=== PATIENT | male | born 1955 | race Caucasian/White ===

== ENCOUNTER 2016-11-07 08:51 | Day surgery (SDC) | payer BC ==
[2016-11-05 12:49] VITALS: BMI 27.6
[~2016-11-07 08:51] MED LIST: LACTATED RINGERS 1,000 ML IV SCH
[2016-11-07 10:18] VITALS: TEMP 97.6
[2016-11-07] MEDS ORDERED: PROPOFOL 10 MG/ML 20 ML VIAL IV ONE (10:26)
--- NOTE | 2016-11-07 10:41 | P.PCN ---
Date of Procedure: 11/07/16 Procedure(s) Performed: BRIEF HISTORY: Patient is a 61-year-old pleasant white male, scheduled for an elective colonoscopy as a part of evaluation of change in bowel habits. Lately has been having frequent loose bowel movements for the last 1 month duration. He denies any rectal bleeding. PROCEDURE PERFORMED: Colonoscopy. PREOPERATIVE DIAGNOSIS: Change in bowel habits. IV sedation per Anesthesia. PROCEDURE: After informed consent was obtained, the patient, was brought into the endoscopy unit. IV conscious sedation was administered by Anesthesia under continuous monitoring. Digital rectal examination was normal. Initially the Olympus CF-160 flexible video colonoscope was then inserted in the rectum, gradually advanced into the cecum without any difficulty. Careful examination was performed as the scope was gradually being withdrawn. Ileocecal valve and the appendiceal orifice were visualized and appeared normal. Prep was excellent. Mucosa of the cecum, ascending colon, transverse colon, descending colon, sigmoid colon, and rectum appeared normal. Retroflexion was performed in the rectum and no lesions were seen. The patient tolerated the procedure well. IMPRESSION: Normal-appearing colon from rectum to cecum with no evidence of colitis or colorectal neoplasia. RECOMMENDATIONS: Findings of this examination were discussed with the patient as well as his family. He was advised to have a repeat screening colonoscopy in 10 years.
[2016-11-07 11:01] VITALS: BP 119/86; PULSE 77; RESP 18
== END 2016-11-07 11:32 | disposition home or self-care (01) ==
LOC: ORWHC2ENDO 08:51
PROVIDERS: ATTEND Internal Medicine Gastroenterology
DX: R19.4 Change in bowel habit (principal); I10 Essential (primary) hypertension; Z79.899 Other long term (current) drug therapy; Z79.82 Long term (current) use of aspirin
CPT/HCPCS: 45378; J2704

== ENCOUNTER → 2017-07-12 | Outpatient (CLI) | payer BC ==
--- NOTE | 2017-07-12 07:49 | MR ---
EXAMINATION TYPE: MR angio neck wo/w con DATE OF EXAM: 07/12/2017 COMPARISON: NONE HISTORY: 61-year-old male with headache, Dizziness Technique: Multiplanar, multisequence images of the neck were obtained before and after administratio n of 9 mL intravenous Gadavist gadolinium contrast. 2-D and 3-D ryyd-da-[id number] imaging was used for the noncontrast portion. FINDINGS: The bilateral carotid bifurcations are patent. There is mild atherosclerotic narrowing at the right c arotid bulb less than 50%. The narrowed carotid bulb has a diameter of 2.6 mm while the upper right c ervical ICA has a diameter of 3.4 mm. This qualifies as a 30% stenosis by NASCET criteria. The remainder of the internal carotid arteries are normal caliber and patent throughout their course. Mild atherosclerotic narrowing at the origin of the bilateral vertebral arteries which are otherwise patent throughout their course. IMPRESSION: Mild atherosclerotic narrowing, of approximately 30%, at the right carotid bulb. No hemodynamically s ignificant stenosis appreciated at either bifurcation.
== END | disposition home or self-care (01) ==
LOC: RADMRIMAIN 05:44
PROVIDERS: ATTEND Nurse Practitioner Family
DX: I65.21 Occlusion and stenosis of right carotid artery (principal)
CPT/HCPCS: 70549; A9581

== ENCOUNTER → 2018-01-31 | Outpatient (CLI) | payer BC ==
--- NOTE | 2018-01-31 10:36 | US ---
EXAMINATION TYPE: US abdomen complete DATE OF EXAM: 01/31/2018 COMPARISON: NONE CLINICAL HISTORY: R10.33 PERIUMBILICAL PAIN,R10.813 RT LOWER QUAD ABD TENDERNESS. EXAM MEASUREMENTS: Liver Length: 12.3 cm Gallbladder Wall: 0.2 cm CBD: 0.2 cm Spleen: 11.4 cm Right Kidney: 10.4 x 4.4 x 4.4 cm Left Kidney: 10.8 x 4.7 x 4.7 cm Patient had extensive midline bowel gas. Pancreas: very limited visualization due to overlying bowel gas Liver: wnl Gallbladder: wnl Evidence for sonographic Kaminski's sign: no CBD: wnl Spleen: wnl Right Kidney: wnl Left Kidney: wnl Upper IVC: wnl Abd Aorta: proximal portion partly obscured by bowel gas, otherwise wnl The liver is homogenous. The intrahepatic portion of the IVC and proximal abdominal aorta are within normal limits. There is no evidence of cholelithiasis. Common bile duct is unremarkable. The visu alized portions of the pancreas are heterogeneous without mass. Portions are secured by overlying bow el gas. The spleen is unremarkable. Kidneys are symmetric and free of hydronephrosis. No solid or c ystic renal lesions are seen. On last few images technologist garcia 5 mm shadowing hyperechoic focus could reflect nonobstructing calculus lower pole level left kidney. IMPRESSION: No suspicious acute finding is seen to account for patient's symptoms. Possible nonobstru cting lower pole 5 mm left renal calculus.
== END ==
LOC: RADUSWWP 06:49
PROVIDERS: ATTEND Family Medicine
DX: R10.33 Periumbilical pain (principal); R10.813 Right lower quadrant abdominal tenderness
CPT/HCPCS: 76700

== ENCOUNTER → 2018-03-17 | Outpatient (CLI) | payer BC ==
--- NOTE | 2018-03-17 18:46 | US ---
EXAMINATION TYPE: US scrotum with doppler. Grayscale and color Doppler Duplex imaging performed of t he scrotum. DATE OF EXAM: 03/17/2018 COMPARISON: NONE CLINICAL HISTORY: N50.812 Left testicular pain. Left side pain. EXAM MEASUREMENTS: TESTICLES: Right Testicle: 3.6 x 2.1 x 4.3 cm Left Testicle: 3.3 x 2.1 x 4.4 cm EPIDIDYMIS HEAD: Right Epididymis: 1.0 x 0.4 x .7 cm Left Epididymis: 0.8 x 0.5 x 0.8 cm Doppler performed to assess for testicular vascularity; good bilateral color flow and waveforms are s een. There is no evidence of testicular torsion. Presence of varicoceles: No Normal color doppler flow bilaterally. IMPRESSION: Small bilateral hydroceles. No testicular torsion or mass.
== END | disposition home or self-care (01) ==
LOC: RADUSMAIN 17:54
PROVIDERS: ATTEND Family Medicine
DX: N43.3 Hydrocele, unspecified (principal)
CPT/HCPCS: 76870; 93975

== ENCOUNTER → 2018-08-01 | Outpatient (CLI) | payer BC ==
--- NOTE | 2018-08-01 12:45 | CT ---
EXAMINATION TYPE: CT abdomen pelvis w con DATE OF EXAM: 08/01/2018 COMPARISON: None HISTORY: LLQ pain and nausea CT DLP: 1110.2 mGycm, Automated Exposure Control for Dose Reduction was Utilized. CONTRAST: CT scan of the abdomen and pelvis is performed with oral and with IV Contrast, patient injected with 100 mL of Isovue 300. FINDINGS: LUNG BASES: No significant abnormality is appreciated. LIVER/GB: No significant abnormality is appreciated. PANCREAS: No significant abnormality is seen. SPLEEN: No significant abnormality is seen. ADRENALS: No significant abnormality is seen. KIDNEYS: There is elongated calculus measuring roughly 6 mm long axis lower pole level left kidney co cuate image 68. There is symmetric cortical medullary uptake and excretion from both kidneys without hydronephrosis or obstructing ureter calculi identified bilaterally. A few scattered pelvic phlebolit hs are seen including higher positioned left pelvic phleboliths. No intraluminal calculus and bladder is present. BOWEL: Oral contrast reaches level of proximal sigmoid colon. There is no suspicious small or large b owel dilatation. Appendix is not visualized and presumed surgically absent. There is some redundancy of the sigmoid colon. PROSTATE/SEMINAL VESICLES: Prostate gland is heterogeneous and slightly enlarged in size bulging on b ladder base, underlying BPH is felt present. LYMPH NODES: No greater than 1cm abdominal or pelvic lymph nodes are appreciated. OSSEOUS STRUCTURES: There is mild to moderate multilevel disc space narrowing. There is mild to moder ate multilevel anterior and lateral spurring in the thoracic spine. OTHER: Tiny fat-containing umbilical hernia is present. Asymmetric tiny fat-containing left inguinal hernia. There is mild to moderate calcified plaque of the aorta extending into branch vessels. IMPRESSION: No bowel obstruction. No CT evidence for significant acute diverticulosis or diverticuli tis. Nonobstructing elongated left renal calculus, no hydronephrosis or obstructing ureter calculi cl early seen.
== END ==
LOC: RADCTMAIN 10:53
PROVIDERS: ATTEND Urology
DX: N20.0 Calculus of kidney (principal)
CPT/HCPCS: 82565; 84520; 74177; 36415; Q9967

== ENCOUNTER → 2020-01-13 | Outpatient (CLI) | payer BC ==
--- NOTE | 2020-01-13 16:44 | CT ---
EXAMINATION TYPE: CT abdomen pelvis w con DATE OF EXAM: 01/13/2020 COMPARISON: 08/01/2018 INDICATION: periumbilical pain DLP: 935 mGycm, Automated exposure control for dose reduction was used. CONTRAST: 100 mL of Isovue 300. Study performed with Oral Contrast TECHNIQUE: Axial images were obtained from above the diaphragm to the pubic rami in the axial plane a t 5 mm thick sections. Reconstructed images are reviewed on the computer in the coronal plane. FINDINGS: Limited CT sections are obtained the lung bases. The lung bases are clear. CT ABDOMEN: Liver: Liver is a normal density without discrete masses or cysts. Spleen: Normal Pancreas: Normal Adrenal glands: The adrenal glands are normal. Gallbladder: Normal Kidneys: No masses are evident. No hydronephrosis is present. No cysts are present. Delayed images were obtained through the kidneys, which remain unremarkable. Aorta: Vascular calcification is within the aorta. Inferior vena cava: Normal. CT PELVIS: Loops of bowel within the abdomen and pelvis are normal. There are loops of bowel which are incom pletely distended or lack oral contrast limiting their evaluation. Appendix: Not identified. No suspicious tubular structures or inflammatory changes are evident. Urinary bladder: Normal. Genitourinary structures: Prostate is prominent. Osseous structures: No suspicious lytic or sclerotic lesions. IMPRESSIONS: 1. No suspicious changes to account for periumbilical pain.
== END | disposition home or self-care (01) ==
LOC: RADCTMAIN 13:40
PROVIDERS: ATTEND Family Medicine
DX: R10.32 Left lower quadrant pain (principal)
CPT/HCPCS: 74177; Q9967

== ENCOUNTER 2020-11-29 16:25 | Inpatient (IN) | payer BC ==
[2020-12-01] MEDS ORDERED: ASPIRIN 325 MG TAB ONE (07:19)
[2020-12-01] MEDS ORDERED: LIDOCAINE 1% INJ 10MG/ML (20 ML MDV) ONE (07:22)
[2020-12-01] MEDS ORDERED: IV FLUID CONTINUATION 1,000 ML IV ONE (07:30)
[2020-12-01] MEDS ORDERED: fentaNYL (PF) 50 MCG/ML 2 ML AMP ONE (07:39)
[2020-12-01] MEDS ORDERED: TICAGRELOR 90 MG TAB ONE (07:39)
[2020-12-01] MEDS ORDERED: VERAPAMIL 2.5 MG/ML 2 ML AMP ONE (07:40)
[2020-12-01] MEDS ORDERED: MIDAZOLAM 2 MG/2 ML VIAL IV ONE (07:43)
[2020-12-01] MEDS ORDERED: fentaNYL (PF) 50 MCG/ML 2 ML AMP IV ONE (07:43)
[2020-12-01] MEDS ORDERED: TICAGRELOR 90 MG TAB PO ONE (07:43)
[2020-12-01] MEDS ORDERED: LIDOCAINE 1% INJ 10MG/ML (20 ML MDV) SQ ONE (07:45)
[2020-12-01] MEDS ORDERED: VERAPAMIL SYRINGE (5 MG/10 ML) INTRAARTER ONE (07:47)
[2020-12-01] MEDS: HEPARIN SODIUM 1,000 UN/ML (10ML VL) IV ONE ×2 (07:52→08:33)
[2020-12-01] MEDS ORDERED: NITROGLYCERIN 1000MCG/10ML SYRINGE INTRACORON ONE ×4 (08:02→08:42)
[2020-12-01] MEDS ORDERED: IOPAMIDOL-370 125ML BTL INJ ONE (08:37)
[2020-12-01] MEDS ORDERED: IOPAMIDOL-370 100ML BTL INJ ONE (08:53)
[2020-12-01] MEDS ORDERED: NITROGLYCERIN SL TABS 0.4 MG TAB SUBLINGUAL PRN (09:02)
[2020-12-01] MEDS ORDERED: ATROPINE SULFATE 0.1 MG/ML 10ML SYRINGE IV PRN (09:02)
[2020-12-01] MEDS ORDERED: MAG HYDROX/AL HYDROX/SIMETH 30 ML CUP PO PRN (09:02)
[2020-12-01] MEDS ORDERED: RX INFO: IV CONTRAST WAS GIVEN 1 EACH MISC MISCELLANE PRN (09:02)
[2020-12-01 10:25] VITALS: RESP 16
[2020-12-01 11:20] VITALS: BMI 27.3
--- NOTE | 2020-12-01 13:01 | P.PRCINT ---
Percutaneous Coronary Int. - Percutaneous Coronary Intervention Percutaneous Coronary Intervention: PROCEDURES PERFORMED: Bilateral coronary angiography, aspiration thrombectomy with Penumbra, PCI of proximal to mid RCA with overlapping 4.0 x 38mm, 4.0 x 12mm Xience SERGE, PCI of mid LAD with a 2.75 x 18mm Xience SERGE INDICATION: Unstable angina, obstructive CAD HISTORY: Patient is a pleasant 65-year-old male with a history of hypertension, ocular migraine, left eye blindness, untreated hyperlipidemia, marijuana use who presents with chest pain with exertion and also while sitting which usually occurs when he feels his heart fluttering. He was found to have rare PVCs and no other significant arrhythmias. He was initially seen at [facility] with normal troponins and echocardiogram showed preserved ejection fraction 50-55% with basal inferior hypokinesis. He had heart catheterization performed which showed 99% tandem RCA stenosis as well as mid LAD 80% stenosis with [id number] collaterals. He did have visual changes during heart catheterization which were similar to his prior ocular migraine and therefore CT brain was performed which showed no acute processes and a carotid ultrasound was performed with preliminary report of mild disease. Patient was transferred to [facility] for intervention. CONSENT:I have discussed the risks, benefits and alternative therapies for the above-mentioned procedure and for both sedation/analgesia as well as necessary blood product administration, if indicated, as they pertain to this patient. The patient has indicated understanding and acceptance of the risks and procedures discussed. PROCEDURE: After the risks, benefits and alternatives of the above mentioned procedure explained in detail with the patient, informed consent was obtained. Patient was taken to the catheterization lab and prepped and draped in usual fashion. 1% lidocaine was used to anesthetize the right radial artery. A 6- Algerian sheath was placed in the right radial artery using modified Seldinger technique. Heparin was given to maintain an ACT > 250. A 6Fr AR2 guide was used to engage the RCA. A 0.014 BMW wire was easily advanced into the distal vessel. Aspiration thrombectomy was performed with a Penumbra catheter. Next balloon angioplasty was performed with a 2.5 x 12mm balloon. Next overlapping 4.0 x 38mm and 4.0 x 12mm Xience SERGE were placed from the ostium to the mid RCA. Preintervention there was ODILIA 1 flow and 99% stenosis and post intervention there was ODILIA 3 flow with no significant stenosis. The wire was pulled and final angiograms were performed. Next a CLS 3.5 guide was used to engage the left main. The left main had a somewhat superior takeoff. A 0.014 BMW wire was advanced into the distal LAD. Balloon angioplasty was performed with a 2.5 x 12mm balloon. Next a 2.75 x 18mm Xience SERGE was placed. The wire was pulled and final angiograms were performed. Pre intervention there was 80% stenosis and ODILIA 3 flow. Post intervention there was ODILIA 3 flow 0% stenosis. There was "pinching" of the jailed diagonal branch however this had ODILIA 3 flow and felt best treated medically. Conscious Sedation: Patient was monitored under the direct supervision of vision of myself for conscious sedation using Versed and fentanyl for a total duration of 70 minutes HEMODYNAMICS: Aorta: 140/78 SELECTIVE CORONARY ARTERIOGRAPHY: LEFT MAIN: The left main is a large caliber vessel which bifurcates into the LA D, and circumflex. There is proximal 20% stenosis. LEFT ANTERIOR DESCENDING CORONARY ARTERY: LAD is a large caliber vessel which wraps around to the apex. There is proximal 40% stenosis and a mid LAD 80% stenosis at the level of a small caliber diagonal 1 branch. LEFT CIRCUMFLEX CORONARY ARTERY: Left circumflex is a moderate caliber vessel. There are mild luminal irregularities. RIGHT CORONARY ARTERY: The right coronary artery is a large caliber vessel which gives off the PDA and PLV and is the dominant vessel. There is an ostial 99% stenosis followed by a 95% long mid RCA stenosis. FINAL IMPRESSION: 1. Successful PCI of proximal to mid RCA with overlapping 4.0 x 38mm, 4.0 x 12mm Xience SERGE, PCI of mid LAD with a 2.75 x 18mm Xience SERGE PLAN: 1. Aggressive risk factor modification per most recent ACC/AHA guidelines. 2. Continue dual antiplatelets for 12 months.
[2020-12-01] MEDS: SODIUM CHLORIDE 0.9% 1,000 ML IV SCH ×2 (13:13→17:56)
[2020-12-01] MEDS: MULTIVITAMINS, THERA 1 EACH TAB PO SCH (13:14)
[2020-12-01] MEDS: lisinopriL 10 MG TAB PO SCH (13:14)
[2020-12-01 15:07] LABS: Glucose,Whole Blood 88 mg/dL (75-99)
[2020-12-01] MEDS: METOPROLOL TARTRATE 25 MG TAB PO SCH ×2 (15:30→21:38)
[2020-12-01] MEDS ORDERED: ZOLPIDEM 5 MG TAB PO PRN (21:00)
[2020-12-01] MEDS ORDERED: ATORVASTATIN 80 MG TAB PO SCH (21:00)
[2020-12-02 04:08] LABS: Basophils % (A) 0 %; Eosinophils # (A) 0.3 k/uL (0-0.7); Eosinophils % (A) 3 %; HCT 46.8 % (39.0-53.0); HGB 16.5 gm/dL (13.0-17.5); Lymphocytes # (A) 1.9 k/uL (1.0-4.8); Lymphocytes % (A) 18 %; MCH 32.1 pg (25.0-35.0); MCHC 35.3 g/dL (31.0-37.0); MCV 90.9 fL (80.0-100.0); Mean Platelet Volume 8.2; Monocytes # (A) 0.6 k/uL (0-1.0); Monocytes % (A) 6 %; Neutrophils # (A) 7.7 k/uL (1.3-7.7); Neutrophils % (A) 73 %; Platelet Count 202 k/uL (150-450); RBC 5.15 m/uL (4.30-5.90); RDW 13.5 % (11.5-15.5); WBC 10.6 k/uL (3.8-10.6)
[2020-12-02 04:27] LABS: Calcium 9.5 mg/dL (8.4-10.2); Potassium 4.3 mmol/L (3.5-5.1)
--- NOTE | 2020-12-02 08:21 | P.PN ---
Subjective HISTORY OF PRESENTING ILLNESS This is a pleasant 65-year-old male past medical history significant for hypertension, hyperlipidemia, blindness in one eye and ocular migraines. He initially was seen at [facility] for unstable angina and had diagnostic heart catheterization which showed 99% RCA stenosis and 80% mid LAD stenosis. He therefore was transferred to [facility] yesterday and had successful PCI of his proximal to mid RCA and mid LAD. He had an episode after the intervention where he became somewhat sweaty, short of breath, and "not feeling well". Denies any specific chest pain or pressure during this episode. Denies any throat pain, jaw pain. This lasted for a few hours and troponins were checked which were mildly elevated. He admits that since yesterday this has completely resolved. Unfortunately he is also feeling somewhat short of breath however is unsure if this may be related to sitting in bed most of the last 3 days. Telemetry reviewed with normal sinus rhythm and occasional PVCs. States he has some left leg cramping. REVIEW OF SYSTEMS At the time of my exam: CONSTITUTIONAL: Denies fever or chills. CARDIOVASCULAR: Denies chest pain, +shortness of breath, no orthopnea, PND or palpitations. RESPIRATORY: Denies cough. GASTROINTESTINAL: Denies abdominal pain, diarrhea, constipation, nausea or vomiting. MUSCULOSKELETAL: Denies myalgias. NEUROLOGIC: Denies numbness, tingling or weakness. ENDOCRINE: Denies fatigue, weight change, polydipsia or polyurina. GENITOURINARY: Denies burning, hematuria or urgency with micturation. HEMATOLOGIC: Denies history of anemia or bleeding. PHYSICAL EXAMINATION Vital signs reviewed CONSTITUTIONAL: No apparent distress. HEENT: Head is normocephalic. Pupils are equal, round. Sclerae anicteric. Mucous membranes of the mouth are moist. No JVD. No carotid bruit. CHEST EXAMINATION: Lungs are clear to auscultation. No chest wall tenderness is noted on palpation or with deep breathing. HEART EXAMINATION: Regular rate and rhythm. S1, S2 heard. No murmurs, gallops or rub. ABDOMEN: Soft, nontender. Positive bowel sounds. EXTREMITIES: 2+ peripheral pulses, no lower extremity edema and no calf tenderness. NEUROLOGIC EXAMINATION: Patient is awake, alert and oriented x3. ASSESSMENT 1. Unstable angina status post PCI of RCA and mid LAD 12/01/2020 2. Hypertension 3. Hyperlipidemia 4. Ocular migraines 5. Shortness breath, maybe related to the Brillinta 6. Episode of diaphoresis and shortness breath with mildly elevated troponins. Appears to have had mild periprocedural [place] PLAN We will check a repeat limited 2-D echo to value for left ventricular function. Continue with dual antiplatelets. Brilinta may be causing some dyspnea however we would like to continue this for the first month if possible to avoid risk of complications from transition early in course. Patient with some atypical left calf pain which he believes he had taken a statin before and had issues with. We discussed this may also be a cramp and he will continue the Lipitor and monitor pain. If 2-D echo unrevealing likely discharge home later today with outpatient follow-up in 1 week. Objective - Vital Signs Vital signs: Vital Signs Temp 98.7 F 12/02/20 04:00 Pulse 64 12/02/20 04:00 Resp 16 12/02/20 04:00 BP 112/76 12/02/20 04:00 Pulse Ox 97 12/02/20 04:00 Intake & Output 12/01/20 12/02/20 12/02/20 18:59 06:59 18:59 Intake Total 2000 Output Total 1010 200 Balance 990 -200 Weight 86.3 kg 86 kg Intake: IV 550 Intake, IV Titration 1000 Amount Sodium Chloride 0.9% 1, 1000 000 ml @ 125 mls/hr IV . Q8H [facility] Rx#:[id number] Oral 450 Output: Urine 1010 200 Other: # Voids 2 - Labs CBC & Chem 7: 12/02/20 03:52 12/02/20 03:52 Labs: Abnormal Lab Results - Last 24 Hours (Table) 12/01/20 12/01/20 12/02/20 Range/Units 15:38 18:22 03:52 Sodium 134 L (137-145) mmol/L Glucose 101 H (74-99) mg/dL Troponin I 0.063 H* 0.280 H* (0.000-0.034) ng/mL 12/02/20 Range/Units 03:52 Sodium (137-145) mmol/L Glucose (74-99) mg/dL Troponin I 0.653 H* (0.000-0.034) ng/mL
[2020-12-02] MEDS: MULTIVITAMINS, THERA 1 EACH TAB PO SCH (08:33)
[2020-12-02] MEDS: lisinopriL 10 MG TAB PO SCH (08:34)
[2020-12-02] MEDS ORDERED: atenoloL 25 MG TAB PO SCH (09:00)
[2020-12-02] MEDS ORDERED: TICAGRELOR 90 MG TAB PO SCH (09:00)
[2020-12-02] MEDS ORDERED: ASPIRIN 81 MG PO SCH ×2 (09:00)
--- NOTE | 2020-12-02 10:34 | ECHOF ---
Referral Reason:re: s/p PCI, LV function MEASUREMENTS -------- HEIGHT: 182.9 cm WEIGHT: 85.7 kg BP: FINDINGS -------- Sinus rhythm. Pt had stents 12/01/20: Limited study for LV function. Overall left ventricular systolic function is normal with, an EF between 55 - 60 %. There is no pericardial effusion. CONCLUSIONS -------- 1. Pt had stents 12/01/20: Limited study for LV function. 2. Overall left ventricular systolic function is normal with, an EF between 55 - 60 %. 3. There is no pericardial effusion. CLIENT RENEWAL SPECIALIST: Rea Coates RDCS
[2020-12-02 10:36] VITALS: TEMP 97.9
--- NOTE | 2020-12-02 13:38 | P.DS ---
Providers Date of admission: 12/01/20 07:20 Attending physician: Deion Siegel DO Consults: 12/01/20 09:02 Consult Physician Routine Consulting Provider: [facility] Consult Reason/Comments: Post Interventional patient Do you want consulting provider notified?: Already Contacted Primary care physician: Stated None Hospital Course: Patient is a pleasant 65-year-old male past medical history significant for hypertension, hyperlipidemia, blindness in one eye and ocular migraines. He initially was seen at [facility] for unstable angina and had diagnostic heart catheterization which showed 99% RCA stenosis and 80% mid LAD stenosis. He therefore was transferred to [facility] yesterday and had successful PCI of his proximal to mid RCA and mid LAD. He had an episode after the intervention where he became somewhat diaphoretic, short of breath, and "not feeling well". This lasted for a few hours and troponins were checked which were mildly elevated. He admits that since yesterday this has completely resolved. He also had mild dyspnea possibly related to his Brillinta however felt best to continue Brilinta for 1 month and then likely transition to Plavix. He had repeat echo which showed preserved EF without significant wall motion abnormality. He appeared stable for discharge on 12/02 with out pt followup. Plan - Discharge Summary Discharge Rx Participant: Yes New Discharge Prescriptions: New Zolpidem [Ambien] 5 mg PO HS PRN tab PRN Reason: Insomnia Ticagrelor [Brilinta] 90 mg PO BID #60 tab Atorvastatin [Lipitor] 40 mg PO DAILY #30 tablet atenoloL [Tenormin] 25 mg PO DAILY tab Continue Aspirin 81 mg PO DAILY lisinopriL [Zestril] 10 mg PO DAILY Multivitamins, Thera [Multivitamin (formulary)] 1 tab PO DAILY Discontinued atenoloL [Tenormin] 12.5 mg PO HS Discharge Medication List Aspirin 81 mg PO DAILY 01/13/14 [History] Multivitamins, Thera [Multivitamin (formulary)] 1 tab PO DAILY 11/05/16 [History] lisinopriL [Zestril] 10 mg PO DAILY 11/05/16 [History] Atorvastatin [Lipitor] 40 mg PO DAILY #30 tablet 12/02/20 [Rx] Ticagrelor [Brilinta] 90 mg PO BID #60 tab 12/02/20 [Rx] Zolpidem [Ambien] 5 mg PO HS PRN tab 12/02/20 [Rx] atenoloL [Tenormin] 25 mg PO DAILY tab 12/02/20 [Rx] Follow up Appointment(s)/Referral(s): [facility],Cardiac [NON-STAFF] - 1 Week Deion Siegel DO [STAFF PHYSICIAN] - 1 Week (Office will call you with appointment date and time.) Patient Instructions/Handouts: Metoprolol (By mouth), Lisinopril (By mouth), Atorvastatin (By mouth), Ticagrelor (By mouth), Left Heart Catheterization (DC), After Radial Heart Catheterization (GEN), Procedural Sedation (ED) Activity/Diet/Wound Care/Special Instructions: No flexing/bending/pushing/pulling/lifting greater than 5 pounds x5 days No submersion of right wrist in pools/hot tubs/bath tubs x3 days No driving x3 days Sedation- Fall risk/safety precautions Follow up No changes with medications- Rhonda new medication
[2020-12-02 14:29] VITALS: BP 112/72; PULSE 59
--- NOTE | 2020-12-05 12:00 | CDI ---
Documentation Clarification Form Date: 12/05/20 From: Anabell Kevin Phone: Admit Date: 12/01/2020 07:20:00 AM Patient Name: Ignacio Enrique Visit Number: [id number] Discharge Date: 12/02/2020 02:55:00 PM ATTENTION: The Clinical Documentation Specialists (CDI) and [facility] Coding Staff appreciate your assistance in clarifying documentation. Please respond to the clarification below the line at the bottom and electronically sign. The CDI & [facility] Coding staff will review the response and follow-up if needed. Please note: Queries are made part of the Legal Health Record. If you have any questions, please contact the author of this message via ITS. Dr. Deion Siegel, Appears to have had mild periprocedural MN documented in 12/02 PN. Additional clarification regarding the type of MN is requested. History/Risk Factors: HTN, HLD, blindness one eye and ocular migraines Clinical Indicators: USA, obstructive CAD- 1.Successful PCI of proximal to mid RCA with overlapping 4.0 x 38mm, 4.0 x 12mm Xience SERGE, PCI of mid LAD with a 2.75 x 18mm Xience SERGE Troponin: 0.063, 0.280, 0.653 EKG Results: sinus rhythm with occasional and consecutive PVCs, T wave abnormality, consider inferior ischemia Treatment: Brinlinta, Lipitor, Tenormin Please clarify the type of MN, if known: [ ] STEMI (type 1) [ ] NSTEMI (type 1) [ ] Type II MN due to (please specify etiology) [ ] Unable to determine [ ] Other Condition, please specify NSTEMI type 1 MTDD
== END 2020-12-02 14:55 | disposition home or self-care (01) | DRG 247 ==
LOC: 3SCARD 12-01 07:20 → EDSTATUS 12-01 07:30 → 3SCARD 12-01 10:21
PROVIDERS: ADMIT Internal Medicine; ATTEND Internal Medicine
PROC: 027135Z Dilation of Coronary Artery, Two Arteries with Two Drug-eluting Intraluminal Devices, Percutaneous Approach (ICD-10-PCS; principal; 2020-12-01 07:30)
PROC: 02C03ZZ Extirpation of Matter from Coronary Artery, One Artery, Percutaneous Approach (ICD-10-PCS; principal; 2020-12-01 07:30)
DX: I21.9 Acute myocardial infarction, unspecified (principal); I25.110 Atherosclerotic heart disease of native coronary artery with unstable angina pectoris; I10 Essential (primary) hypertension; E78.5 Hyperlipidemia, unspecified; G43.B0 Ophthalmoplegic migraine, not intractable; H54.60 Unqualified visual loss, one eye, unspecified; I49.3 Ventricular premature depolarization; Z79.82 Long term (current) use of aspirin; Z79.899 Other long term (current) drug therapy
CPT/HCPCS: 80048; 84484; 85025; 85347; 92973; 93308; 94760

== ENCOUNTER 2020-12-04 15:33 | Inpatient (IN) | payer BC ==
[2020-12-04] MEDS ORDERED: PANTOPRAZOLE 40 MG/10 ML VIAL IVP STA (15:51)
--- NOTE | 2020-12-04 15:54 | ED ---
General Adult HPI - General Chief complaint: Chest Pain Stated complaint: dizziness, chest pressure Time Seen by Provider: 12/04/20 15:42 Source: patient, RN notes reviewed, old records reviewed Mode of arrival: wheelchair Limitations: no limitations - History of Present Illness Initial comments: 65-year-old male presenting for evaluation of chest pressure which began about one hour prior to arrival. This is nonradiating. It is associated with some burning in his upper chest and throat. No vomiting. No nausea. No diaphoresis. Patient is 2 days postop coronary angiogram with stenting. He is currently on aspirin and Brilinta he has taken his medication this morning. Additionally is on statin beta rosemary. He states this is not typical of either previous indigestion or previous chest pain associated with his coronary artery disease. No fever. No cough. No dyspnea. No lower extremity pain or swelling. - Related Data Home Medications Medication Instructions Recorded Confirmed Aspirin 81 mg PO DAILY 01/13/14 12/04/20 Multivitamins, Thera [Multivitamin 1 tab PO DAILY 11/05/16 12/04/20 (formulary)] lisinopriL [Zestril] 10 mg PO DAILY 11/05/16 12/04/20 Previous Rx's Medication Instructions Recorded Atorvastatin [Lipitor] 40 mg PO DAILY #30 tablet 12/02/20 Ticagrelor [Brilinta] 90 mg PO BID #60 tab 12/02/20 atenoloL [Tenormin] 25 mg PO DAILY tab 12/02/20 Allergies Allergy/AdvReac Type Severity Reaction Status Date / Time No Known Allergies Allergy Verified 12/04/20 17:29 Review of Systems ROS Statement: Those systems with pertinent positive or pertinent negative responses have been documented in the HPI. ROS Other: All systems not noted in ROS Statement are negative. Past Medical History Past Medical History: Hypertension Additional Past Medical History / Comment(s): legally blind left eye History of Any Multi-Drug Resistant Organisms: None Reported Past Surgical History: Heart Catheterization With Stent, Orthopedic Surgery Additional Past Surgical History / Comment(s): lt eye sx for injury, cataracts and glaucoma, rt knee surgery Past Anesthesia/Blood Transfusion Reactions: No Reported Reaction Past Psychological History: No Psychological Hx Reported Smoking Status: Never smoker Past Alcohol Use History: Occasional Past Drug Use History: Marijuana - Past Family History Brother(s) Family Medical History: Cancer Additional Family Medical History / Comment(s): brain General Exam Limitations: no limitations General appearance: alert, in no apparent distress Head exam: Present: atraumatic, normocephalic Eye exam: Present: normal appearance, other (Corneal clouding left eye) Neck exam: Present: normal inspection, full ROM Respiratory exam: Present: normal lung sounds bilaterally. Absent: respiratory distress, wheezes Cardiovascular Exam: Present: regular rate, normal rhythm GI/Abdominal exam: Present: soft. Absent: distended, tenderness, guarding, re bound Extremities exam: Present: normal inspection, normal capillary refill. Absent: pedal edema Neurological exam: Present: alert, oriented X3, CN II-XII intact. Absent: motor sensory deficit Psychiatric exam: Present: normal affect, normal mood Skin exam: Present: warm, dry, intact, normal color. Absent: cyanosis, diaphoretic Course Vital Signs 12/04/20 15:34 Temperature 97.7 F Pulse Rate 58 L Respiratory 18 Rate Blood Pressure 110/74 O2 Sat by Pulse 100 Oximetry EKG Findings - EKG Comments: EKG Findings:: EKG: Normal sinus rhythm, low voltage, no ST segment elevation, artifact in V3 no ST segment depression. Rate of 66, MN interval 178, QRS duration 88, QTC 402 Medical Decision Making - Medical Decision Making 65-year-old male with an episode of chest discomfort. No associated symptoms. Recent heart cath with stenting of both the RCA and LAD. He is on dual antiplatelet therapy which she has been compliant with. Symptoms are improving and nearly resolved at the time my evaluation. EKG is sinus rhythm without ST segment elevation. Patient's has a chest x-ray which is negative for acute cardio pulmonary disease. He has a normal white blood cell count, hemoglobin 17.8. Creatinine 1.27. He has a troponin elevation of 0.122 which is down trending from previous. I discussed case with Dr. Tyler angel for cardiology, recommends Nitropaste, no heparin at this time as the patient is asymptomatic. His enzymes will be trended. Will be placed in observation, admitted to Dr. Denis who is aware of the patient with cardiology on consultation. - Lab Data Result diagrams: 12/04/20 15:59 12/04/20 15:59 Lab Results 12/04/20 12/04/20 12/04/20 Range/Units 15:59 15:59 15:59 WBC 9.3 (3.8-10.6) k/uL RBC 5.60 (4.30-5.90) m/uL Hgb 17.8 H (13.0-17.5) gm/dL Hct 51.0 (39.0-53.0) % MCV 91.2 (80.0-100.0) fL MCH 31.7 (25.0-35.0) pg MCHC 34.8 (31.0-37.0) g/dL RDW 13.5 (11.5-15.5) % Plt Count 234 (150-450) k/uL MPV 8.5 Neutrophils % 81 % Lymphocytes % 11 % Monocytes % 4 % Eosinophils % 3 % Basophils % 0 % Neutrophils # 7.6 (1.3-7.7) k/uL Lymphocytes # 1.0 (1.0-4.8) k/uL Monocytes # 0.4 (0-1.0) k/uL Eosinophils # 0.3 (0-0.7) k/uL Basophils # 0.0 (0-0.2) k/uL PT 10.4 (9.0-12.0) sec INR 1.0 (<1.2) APTT 19.5 L (22.0-30.0) sec Sodium 133 L (137-145) mmol/L Potassium 4.4 (3.5-5.1) mmol/L Chloride 104 (98-107) mmol/L Carbon Dioxide 19 L (22-30) mmol/L Anion Gap 10 mmol/L BUN 31 H (9-20) mg/dL Creatinine 1.27 H (0.66-1.25) mg/dL Est GFR (CKD-EPI)AfAm 69 (>60 ml/min/1.73 sqM) Est GFR (CKD-EPI)NonAf 59 (>60 ml/min/1.73 sqM) Glucose 129 H (74-99) mg/dL Calcium 10.0 (8.4-10.2) mg/dL Magnesium 2.2 (1.6-2.3) mg/dL Total Bilirubin 1.0 (0.2-1.3) mg/dL AST 54 (17-59) U/L ALT 59 H (4-49) U/L Alkaline Phosphatase 102 (38-126) U/L Troponin I (0.000-0.034) ng/mL Total Protein 7.8 (6.3-8.2) g/dL Albumin 4.6 (3.5-5.0) g/dL Lipase 212 (23-300) U/L 12/04/20 Range/Units 15:59 WBC (3.8-10.6) k/uL RBC (4.30-5.90) m/uL Hgb (13.0-17.5) gm/dL Hct (39.0-53.0) % MCV (80.0-100.0) fL MCH (25.0-35.0) pg MCHC (31.0-37.0) g/dL RDW (11.5-15.5) % Plt Count (150-450) k/uL MPV Neutrophils % % Lymphocytes % % Monocytes % % Eosinophils % % Basophils % % Neutrophils # (1.3-7.7) k/uL Lymphocytes # (1.0-4.8) k/uL Monocytes # (0-1.0) k/uL Eosinophils # (0-0.7) k/uL Basophils # (0-0.2) k/uL PT (9.0-12.0) sec INR (<1.2) APTT (22.0-30.0) sec Sodium (137-145) mmol/L Potassium (3.5-5.1) mmol/L Chloride (98-107) mmol/L Carbon Dioxide (22-30) mmol/L Anion Gap mmol/L BUN (9-20) mg/dL Creatinine (0.66-1.25) mg/dL Est GFR (CKD-EPI)AfAm (>60 ml/min/1.73 sqM) Est GFR (CKD-EPI)NonAf (>60 ml/min/1.73 sqM) Glucose (74-99) mg/dL Calcium (8.4-10.2) mg/dL Magnesium (1.6-2.3) mg/dL Total Bilirubin (0.2-1.3) mg/dL AST (17-59) U/L ALT (4-49) U/L Alkaline Phosphatase (38-126) U/L Troponin I 0.122 H* (0.000-0.034) ng/mL Total Protein (6.3-8.2) g/dL Albumin (3.5-5.0) g/dL Lipase (23-300) U/L Disposition Clinical Impression: Chest pain, CAD (coronary artery disease) Disposition: ADMITTED IP TO THIS HOSP Condition: Stable Is patient prescribed a controlled substance at d/c from ED?: No Referrals: Felicia Morales DO [Primary Care Provider] - 1-2 days Decision to Admit Reason: Admit from EC Decision Date: 12/04/20 Decision Time: 18:08
--- NOTE | 2020-12-04 16:18 | XR ---
EXAMINATION TYPE: XR chest 2V DATE OF EXAM: 12/04/2020 COMPARISON: NONE 2 views HISTORY: Short of breath Heart and mediastinum are normal. Lungs are clear. Diaphragm is normal. Bony thorax appears normal. There are chest leads. IMPRESSION: Normal chest.
[2020-12-04 16:19] LABS: Basophils % (A) 0 %; Eosinophils # (A) 0.3 k/uL (0-0.7); Eosinophils % (A) 3 %; HGB 17.8 gm/dL (13.0-17.5); Lymphocytes % (A) 11 %; MCH 31.7 pg (25.0-35.0); MCHC 34.8 g/dL (31.0-37.0); MCV 91.2 fL (80.0-100.0); Mean Platelet Volume 8.5; Monocytes # (A) 0.4 k/uL (0-1.0); Monocytes % (A) 4 %; Neutrophils # (A) 7.6 k/uL (1.3-7.7); Neutrophils % (A) 81 %; Platelet Count 234 k/uL (150-450); RDW 13.5 % (11.5-15.5); WBC 9.3 k/uL (3.8-10.6)
[2020-12-04 16:34] LABS: Albumin 4.6 g/dL (3.5-5.0); Magnesium 2.2 mg/dL (1.6-2.3); Potassium 4.4 mmol/L (3.5-5.1); Total Protein 7.8 g/dL (6.3-8.2)
[2020-12-04 16:46] LABS: Prothrombin Time 10.4 sec (9.0-12.0)
[2020-12-04 16:57] LABS: Partial Thromboplastin Time 19.5 sec (22.0-30.0)
[2020-12-04] MEDS ORDERED: NITROGLYCERIN OINT 1 INCH/GM PACKET TOPICAL STA (17:06)
[2020-12-04] MEDS ORDERED: ACETAMINOPHEN TAB 325 MG TAB PO PRN (18:05)
[2020-12-04] MEDS ORDERED: NALOXONE 0.4 MG/ML 1 ML VIAL IV PRN (18:05)
[2020-12-04] MEDS: SODIUM CHLORIDE 0.9% 1,000 ML IV SCH (18:20)
[2020-12-04] MEDS ORDERED: HEPARIN SODIUM 1,000 UN/ML (10ML VL) IV ONE (20:27)
[2020-12-04] MEDS ORDERED: HEPARIN SODIUM 1,000 UN/ML (10ML VL) IV PRN (20:27)
[2020-12-04] MEDS ORDERED: HEPARIN SOD,PORK IN 0.45% NACL 25,000 UNIT in 0.45% NACL 1 250ML.BAG IV SCH (20:30)
[2020-12-04] MEDS: TICAGRELOR 90 MG TAB PO SCH (20:43)
[2020-12-04] MEDS ORDERED: HYDROcodone/APAP 5-325MG 1 EACH TAB PO PRN (21:38)
[2020-12-04] MEDS ORDERED: ALPRAZolam 0.25 MG TAB PO PRN (21:38)
--- NOTE | 2020-12-05 06:21 | HP ---
HISTORY AND PHYSICAL DATE OF SERVICE: 12/04/2020 CHIEF COMPLAINT: Chest pain. HISTORY OF PRESENT ILLNESS: This 65-year-old gentleman with a past medical history of multiple medical problems including hypertension, history of blind eye, history of DJD, was being followed Dr. Morales in the outpatient setting. He recently had cardiac procedure and aspiration thrombectomy with Penumbra as well as PCI of the proximal to mid RCA by Dr. Siegel. The patient went home and currently the patient is complaining of chest pain which is 7 out of 8 in intensity in the anterior part of the chest and is subsequently radiating to the neck with burning sensation that lasted about an hour. The patient came to [facility] and was admitted to the hospital for further evaluation and treatment. The troponin was found to be 0.122 which is actually diminishing from the higher level of 0.65 on 12/02/2020. There is no history of fever, rigors or chills. No headache, loss of consciousness or seizures at this time. PAST MEDICAL HISTORY: History of recent CAD stent, hypertension, history of legal blindness left eye, DJD. MEDICATIONS: Home medications are Zestril, Tenormin, Brilinta, multivitamins, Lipitor and aspirin. FAMILY HISTORY: History of brain cancer in the family. SOCIAL HISTORY: No history of smoking. Occasional THC. History of alcohol. REVIEW OF SYSTEMS: ENT: No diminished vision or hearing. CARDIOVASCULAR: As mentioned earlier. RESPIRATORY: As mentioned earlier. GI: No nausea or vomiting. : No dysuria. NERVOUS SYSTEM: No numbness or weakness. ALLERGY/IMMUNOLOGY: No asthma or hayfever. MUSCULOSKELETAL: As mentioned earlier. HEMATOLOGY: No history of anemia. ENDOCRINE: No history of diabetes or hypothyroidism. CONSTITUTIONAL: As mentioned earlier. DERMATOLOGY: Negative. RHEUMATOLOGY: Negative. PSYCHIATRY: As mentioned earlier. PHYSICAL EXAMINATION: GENERAL: Patient is alert and oriented times three. VITAL SIGNS: Pulse 62, blood pressure 104/70, respirations 17, temperature 97.7, pulse ox 99% on 2 liters. HEENT: Conjunctivae normal. Oral mucosa moist. NECK: No jugular venous distention. No carotid bruits. No lymph node enlargement. RESPIRATORY: Breath sounds diminished at the bases. No rhonchi, no crackles. HEART: S1 and S2, muffled. ABDOMEN: Soft, no tenderness. No masses palpable. EXTREMITIES: No edema, no swelling. NERVOUS: Higher functions as mentioned earlier. Moves all four limbs. No focal motor or sensory deficits. LYMPHATICS: No lymph nodes palpable in the neck or axillae. SKIN: No rashes. JOINTS: No active deforming arthropathy. LABS: WBC 9.3, hemoglobin is 17, sodium 133 and creatinine 1.27. Troponin is noted. ASSESSMENT: 1. Chest pain possible unstable angina. Rule out acute non-ST segment elevation myocardial infarction with troponin 1.22. 2. History of recent coronary artery disease with stenting. 3. Hyponatremia. 4. Increased creatinine with possible acute renal failure and acute tubular necrosis. 5. Hyponatremia. 6. Hypertension. 7. Legal blindness left eye. 8. History of degenerative joint disease. 9. History of THC. 10.FULL CODE. RECOMMENDATION AND DISCUSSION: In this 65-year-old gentleman who presented with multiple complex medical issues, we will monitor the patient closely. Continue the current medications. I would recommend IV heparin. Symptomatic treatment. Resume the home medications. Cardiology evaluation. Prognosis guarded because of multiple complex medical issues. Further recommendations to follow. Avoid nephrotoxic medications. We will also hydrate. Also repeat labs will be ordered for tomorrow. MMODL / IJN: [id number] /
[2020-12-05 08:52] LABS: Basophils # (A) 0.06 X 10*3/uL (0.00-0.10); Basophils % (A) 0.5 %; Eosinophils # (A) 0.23 X 10*3/uL (0.04-0.35); Eosinophils % (A) 2.1 %; HCT 46.9 % (39.6-50.0); HGB 15.5 g/dL (13.0-17.0); Lymphocytes # (A) 2.27 X 10*3/uL (0.90-5.00); Lymphocytes % (A) 20.3 %; MCH 30.6 pg (27.0-32.0); MCV 92.7 fL (80.0-97.0); Mean Platelet Volume 11.7 fL (9.5-12.2); Monocytes # (A) 0.91 X 10*3/uL (0.20-1.00); Monocytes % (A) 8.1 %; Neutrophils # (A) 7.69 X 10*3/uL (1.80-7.70); Neutrophils % (A) 68.6 %; Platelet Count 231 X 10*3/uL (140-440); RBC 5.06 X 10*6/uL (4.40-5.60); RDW 13.9 % (11.5-14.5)
[2020-12-05] MEDS ORDERED: lisinopriL 10 MG TAB PO SCH (09:00)
[2020-12-05] MEDS ORDERED: ASPIRIN 325 MG TAB PO STA (09:41)
[2020-12-05] MEDS ORDERED: NITROGLYCERIN SL TABS 0.4 MG TAB SUBLINGUAL PRN (09:41)
[2020-12-05] MEDS ORDERED: ATORVASTATIN 80 MG TAB PO STA (09:41)
[2020-12-05] MEDS ORDERED: SODIUM CHLORIDE 0.9% 1,000 ML in EMPTY BAG 1 BAG IV ONE (09:41)
[2020-12-05] MEDS ORDERED: ALPRAZolam 0.5 MG TAB PO PRN (09:41)
[2020-12-05 11:26] LABS: African American GFR (CKD) 66.8 (60.0-200.0); Albumin 4.1 g/dL (3.80-4.90); Albumin/Globulin Ratio 2.05 (1.60-3.17); Anion Gap 6.6 mmol/L (4.00-12.00); BUN/Creat Ratio 20.77 Ratio (12.00-20.00); Calcium 8.8 mg/dL (8.7-10.3); Carbon Dioxide 23.4 mmol/L (21.6-31.8); Non-African American GFR(CKD) 57.7 (60.0-200.0); Potassium 4.5 mmol/L (3.5-5.5); Total Bilirubin 0.8 mg/dL (0.3-1.2); Total Protein 6.1 g/dL (6.2-8.2)
--- NOTE | 2020-12-05 12:18 | P.CRDCN ---
History of Present Illness Consult date: 12/05/20 History of present illness: HISTORY OF PRESENT ILLNESS: This is a 65-year-old male with a past medical history significant for hypertension, hyperlipidemia, legally blind in left eye, and coronary artery disease with recent PCI to proximal to mid RCA and mid LAD. Patient follows in the office with Dr. Siegel. We have been asked to see the patient in consultation for chest pain. Patient examined at the bedside in the emergency room. Patient states yesterday around 1 PM he was sitting at home when he began having some chest discomfort. The pain started and then midsternal to epigastric region. He reports a burning sensation that went up into his throat. He denies any shortness of breath. He denied any nausea or vomiting. He denied dizziness or lightheadedness. He denied any radiation of the pain. He states the pain lasted for approximately 90 minutes and then resolved on its own. He states he did not take any medications to help with the pain. He decided to come to the emergency room for further evaluation. He denies having any further episodes of chest pain overnight or this morning. Patient states he has been compliant with his medications and denies missing any doses. EKG reveals sinus mechanism with no signs of acute ischemia Chest xray negative for acute process Laboratory data: WBC 11.2. Hemoglobin 15.5. Platelet count 231. Sodium 136. Potassium 4.5. BUN 27. Creatinine 1.3. Troponin 0.122. 0.177. 0.197. Current home cardiac medications include lisinopril 10 mg daily, atenolol 25 mg daily, Leroy to 90 mg twice a day, Lipitor 40 mg daily, and aspirin 81 mg daily Most recent echocardiogram obtained on 12/02/2020 reveals ejection fraction 55- 60% with no evidence of pericardial effusion Cardiac catheterization history: 12/01/[address] Siegel with PCI to proximal to mid RCA and mid LAD REVIEW OF SYSTEMS: At the time of my exam: CONSTITUTIONAL: Denies fever or chills. HEENT: Denies blurred vision, vision changes, or eye pain. Denies hemoptysis CARDIOVASCULAR: Denies chest pain. Denies orthopnea. Denies PND. Denies palpitations RESPIRATORY: Denies shortness of breath. GASTROINTESTINAL: Denies abdominal pain. Denies nausea or vomiting. HEMATOLOGIC: Denies bleeding disorders. GENITOURINARY: Denies any blood in urine. SKIN: Denies pruitis. Denies rash. PHYSICAL EXAM: VITAL SIGNS: Reviewed. GENERAL: Well-developed in no acute distress. HEENT: Head is normocephalic. Pupils are equal, round. Sclerae anicteric. Mucous membranes of the mouth are moist. Neck supple. No JVD or thyromegaly LUNGS: Respirations even and unlabored. Lungs essentially clear to auscultation bilaterally. HEART: Regular rate and rhythm. S1 and S2 heard. ABDOMEN: Soft. Nondistended. Nontender. EXTREMITIES: Normal range of motion. No clubbing or cyanosis. Peripheral pulses intact. No lower extremity edema NEUROLOGIC: Awake and alert. Oriented x 3. ASSESSMENT: Chest pain, possible NSTEMI Coronary artery disease with recent PCI to RCA and LAD, 12/01/2020 Hypertension Hyperlipidemia Legally blind left eye Marijuana use PLAN: Resume home cardiac medications Continue IV heparin Case discussed with Dr. Siegel. Patient to undergo cardiac catheterization today. Further recommendations pending patient's course Nurse practitioner note has been reviewed by physician. Signing provider agrees with the documented findings, assessment, and plan of care. Past Medical History Past Medical History: Hypertension Additional Past Medical History / Comment(s): legally blind left eye History of Any Multi-Drug Resistant Organisms: None Reported Past Surgical History: Heart Catheterization With Stent, Orthopedic Surgery Additional Past Surgical History / Comment(s): lt eye sx for injury, cataracts and glaucoma, rt knee surgery Past Anesthesia/Blood Transfusion Reactions: No Reported Reaction Past Psychological History: No Psychological Hx Reported Smoking Status: Never smoker Past Alcohol Use History: Occasional Past Drug Use History: Marijuana - Past Family History Brother(s) Family Medical History: Cancer Additional Family Medical History / Comment(s): brain Medications and Allergies Home Medications Medication Instructions Recorded Confirmed Type Aspirin 81 mg PO DAILY 01/13/14 12/04/20 History Multivitamins, Thera [Multivitamin 1 tab PO DAILY 11/05/16 12/04/20 History (formulary)] lisinopriL [Zestril] 10 mg PO DAILY 11/05/16 12/04/20 History Atorvastatin [Lipitor] 40 mg PO DAILY #30 tablet 12/02/20 12/04/20 Rx Ticagrelor [Brilinta] 90 mg PO BID #60 tab 12/02/20 12/04/20 Rx atenoloL [Tenormin] 25 mg PO DAILY tab 12/02/20 12/04/20 Rx Allergies Allergy/AdvReac Type Severity Reaction Status Date / Time No Known Allergies Allergy Verified 12/04/20 17:29 Physical Exam Vitals: Vital Signs Temp Pulse Pulse Resp BP BP Pulse Ox 12/05/20 08:27 67 16 122/75 99 12/05/20 07:53 98.0 F 72 18 97/64 98 12/05/20 06:24 65 18 110/61 98 12/05/20 01:33 64 19 97/79 98 12/04/20 20:44 62 17 104/74 99 12/04/20 18:35 63 18 102/73 99 12/04/20 15:34 97.7 F 58 L 18 110/74 100 Intake and Output 12/04/20 12/05/20 12/05/20 22:59 06:59 14:59 Intake Total 79.666 Balance 79.666 Intake: Intake, IV Titration 79.666 Amount Heparin Sod,Pork in 0.45% 79.666 NaCl 25,000 unit In 0.45 % NaCl 1 250ml.bag @ 11 UNITS/KG/HR 9.979 mls/hr IV .Q24H [facility] Rx#: [id number] Other: # Voids 1 Weight 90.718 kg Results 12/05/20 02:40 12/05/20 02:40 Cardiac Enzymes 12/04/20 12/04/20 12/04/20 Range/Units 15:59 15:59 22:05 AST 54 (17-59) U/L Troponin I 0.122 H* 0.177 H* (0.000-0.034) ng/mL 12/05/20 12/05/20 Range/Units 00:20 02:40 AST 39 H (17-59) U/L Troponin I 0.197 H* (0.000-0.034) ng/mL Coagulation 12/04/20 12/05/20 12/05/20 Range/Units 15:59 02:40 10:06 PT 10.4 (9.0-12.0) sec APTT 19.5 L 77.1 H 51.0 H (22.0-30.0) sec CBC 12/04/20 12/05/20 Range/Units 15:59 02:40 WBC 9.3 11.20 H (3.8-10.6) k/uL RBC 5.60 5.06 (4.30-5.90) m/uL Hgb 17.8 H 15.5 (13.0-17.5) gm/dL Hct 51.0 46.9 (39.0-53.0) % Plt Count 234 231 (150-450) k/uL Comprehensive Metabolic Panel 12/04/20 12/05/20 Range/Units 15:59 02:40 Sodium 133 L 136 (137-145) mmol/L Potassium 4.4 4.5 (3.5-5.1) mmol/L Chloride 104 106 (98-107) mmol/L Carbon Dioxide 19 L 23.4 (22-30) mmol/L BUN 31 H 27.0 (9-20) mg/dL Creatinine 1.27 H 1.3 (0.66-1.25) mg/dL Glucose 129 H 92 (74-99) mg/dL Calcium 10.0 8.8 (8.4-10.2) mg/dL AST 54 39 H (17-59) U/L ALT 59 H 52 H (4-49) U/L Alkaline Phosphatase 102 105 (38-126) U/L Total Protein 7.8 6.1 L (6.3-8.2) g/dL Albumin 4.6 4.10 (3.5-5.0) g/dL Current Medications Generic Name Dose Route Start Last Admin Trade Name Freq PRN Reason Stop Dose Admin Acetaminophen 650 mg 12/04/20 18:05 Acetaminophen Tab 325 Mg Tab PO Q6HR PRN Mild Pain or Fever > 100.5 Hydrocodone Bitart/Acetaminophen 1 each 12/04/20 21:38 Hydrocodone/Apap 5-325mg 1 Each Tab PO Q6HR PRN Pain Alprazolam 0.25 mg 12/04/20 21:38 Alprazolam 0.25 Mg Tab PO TID PRN Anxiety Alprazolam 0.25 mg 12/05/20 09:41 Alprazolam 0.25 Mg Tab PO Q6HR PRN Mild Anxiety Alprazolam 0.5 mg 12/05/20 09:41 Alprazolam 0.5 Mg Tab PO Q6HR PRN Moderate Anxiety Aspirin 81 mg 12/05/20 09:00 Aspirin 81 Mg PO DAILY [facility] Atenolol 25 mg 12/05/20 09:00 Atenolol 25 Mg Tab PO DAILY [facility] Atorvastatin Calcium 40 mg 12/05/20 09:00 Atorvastatin 40 Mg Tab PO DAILY [facility] Heparin Sodium (Porcine) 0 unit 12/04/20 20:27 Heparin Sodium 1,000 Un/Ml (10ml Vl) IV PER PROTOCOL PRN Low PTT Protocol Sodium Chloride 1,000 mls @ 75 mls/hr 12/04/20 17:15 12/04/20 18:20 Saline 0.9% IV 75 mls/hr .[id number] KALEN Administration Heparin Sodium/Sodium Chloride 250 mls @ 9.979 mls/hr 12/04/20 20:30 12/05/20 04:40 25,000 unit/ Sodium Chloride IV 9 units/kg/hr .Q24H KALEN 8.165 mls/hr Titration Protocol 11 UNITS/KG/HR Sodium Chloride 1,000 ml/ IV 1,000 mls @ 90.718 mls/hr 12/05/20 09:41 Solution IV 12/05/20 20:42 .Q11H2M ONE 1 ML/KG/HR Heparin Sodium (Porcine) 10, 1,001 mls @ 999 mls/hr 12/06/20 07:00 000 unit/ Sodium Chloride IRRIGATION 12/06/20 23:00 ONCE PRN INTRA-OP Heparin Sodium (Porcine) 2,500 250.5 mls @ 250 mls/hr 12/06/20 07:00 unit/ Sodium Chloride IRRIGATION 12/06/20 23:00 ONCE PRN INTRA-OP Naloxone HCl 0.2 mg 12/04/20 18:05 Naloxone 0.4 Mg/Ml 1 Ml Vial IV Q2M PRN Opioid Reversal Nitroglycerin 0.4 mg 12/05/20 09:41 Nitroglycerin Sl Tabs 0.4 Mg Tab SUBLINGUAL Q5M PRN Chest Pain Pantoprazole Sodium 40 mg 12/05/20 07:30 Pantoprazole 40 Mg Tablet PO AC-BRKFST [facility] Ticagrelor 90 mg 12/04/20 21:00 12/04/20 20:43 Ticagrelor 90 Mg Tab PO 90 mg BID [facility] Administration Intake and Output 12/04/20 12/05/2021 22:59 06:59 14:59 Intake Total 79.666 Balance 79.666 Intake: Intake, IV Titration 79.666 Amount Heparin Sod,Pork in 0.45% 79.666 NaCl 25,000 unit In 0.45 % NaCl 1 250ml.bag @ 11 UNITS/KG/HR 9.979 mls/hr IV .Q24H [facility] Rx#: [id number] Other: # Voids 1 Weight 90.718 kg 12/05/20 02:40 12/05/20 02:40
[2020-12-05] MEDS ORDERED: VERAPAMIL 2.5 MG/ML 2 ML AMP ONE (12:37)
[2020-12-05] MEDS ORDERED: fentaNYL (PF) 50 MCG/ML 2 ML AMP ONE (12:37)
[2020-12-05] MEDS ORDERED: LIDOCAINE 1% INJ 10MG/ML (20 ML MDV) ONE (12:37)
[2020-12-05] MEDS ORDERED: IV FLUID CONTINUATION 1,000 ML IV ONE (12:56)
[2020-12-05] MEDS ORDERED: fentaNYL (PF) 50 MCG/ML 2 ML AMP IV ONE (12:56)
[2020-12-05] MEDS ORDERED: MIDAZOLAM 2 MG/2 ML VIAL IV ONE (12:56)
[2020-12-05] MEDS ORDERED: LIDOCAINE 1% INJ 10MG/ML (20 ML MDV) SQ ONE (13:02)
[2020-12-05] MEDS ORDERED: VERAPAMIL SYRINGE (5 MG/10 ML) INTRAARTER ONE (13:08)
[2020-12-05] MEDS ORDERED: HEPARIN SODIUM 1,000 UN/ML (10ML VL) ONE (13:10)
[2020-12-05] MEDS: HEPARIN SODIUM 1,000 UN/ML (10ML VL) IV ONE ×2 (13:11→13:24)
[2020-12-05] MEDS ORDERED: TICAGRELOR 90 MG TAB ONE (13:34)
[2020-12-05] MEDS ORDERED: TICAGRELOR 90 MG TAB PO ONE (13:37)
[2020-12-05] MEDS: NITROGLYCERIN 1000MCG/10ML SYRINGE INTRACORON ONE ×2 (13:48→14:11)
[2020-12-05] MEDS ORDERED: IOPAMIDOL-370 125ML BTL INJ ONE (13:48)
[2020-12-05] MEDS ORDERED: IOPAMIDOL-370 100ML BTL INJ ONE (14:12)
[2020-12-05] MEDS ORDERED: ATROPINE SULFATE 0.1 MG/ML 10ML SYRINGE IV PRN (14:52)
[2020-12-05] MEDS ORDERED: MAG HYDROX/AL HYDROX/SIMETH 30 ML CUP PO PRN (14:52)
[2020-12-05] MEDS ORDERED: RX INFO: IV CONTRAST WAS GIVEN 1 EACH MISC MISCELLANE PRN (14:52)
[2020-12-05] MEDS ORDERED: ZOLPIDEM 5 MG TAB PO PRN (14:52)
--- NOTE | 2020-12-05 15:52 | PN ---
PROGRESS NOTE DATE OF SERVICE: 12/05/2020 This 65-year-old gentleman with admitted chest pain and possible acute fyb-HU-szlzvcu- elevation myocardial infarction had a recent stent. The patient underwent cardiac catheterization and repeat stenting. The details are not available at this time. No chest pain. No palpitations. No fever. PHYSICAL EXAMINATION: Alert and oriented x3. Pulse 65, blood pressure 121/71, respirations 16, temperature 98 degrees, pulse ox 98% on room air. HEENT: Conjunctivae normal. NECK: No jugular venous distention. CARDIOVASCULAR SYSTEM: S1, S2 muffled. RESPIRATORY SYSTEM: Breath sounds diminished at the bases. A few scattered rhonchi. ABDOMEN: Soft, non-tender. NERVOUS SYSTEM: No focal deficit. LABS: WBC 11.2. Creatinine is normal. Troponins noted. ASSESSMENT: 1. Chest pain, possible acute ydx-YG-rerrfub-elevation myocardial infarction with troponin 1.22, status post cardiac catheterization and stenting. 2. History of recent stenting and cardiac catheterization. 3. Hyponatremia. 4. Increased creatinine with possible acute renal failure and acute tubular necrosis, present on admission. 5. Hypertension. 6. Legal blindness in left eye. 7. History of degenerative joint disease. 8. History of tetrahydrocannabinol. 9. FULL CODE. RECOMMENDATIONS AND DISCUSSION: I recommend to continue current medications, continue with the monitoring, symptomatic treatment. I recommend continuing with antiplatelet agents. Continue with post-PTCA protocol. Closely follow with Cardiology. Guarded prognosis. Further recommendations to follow. [id number] / JOYCEN: [id number] /
[2020-12-05] MEDS: TICAGRELOR 90 MG TAB PO SCH ×2 (17:57→19:42)
[2020-12-05] MEDS: SODIUM CHLORIDE 0.9% 1,000 ML IV SCH ×4 (17:58→23:10)
[2020-12-05] MEDS: PANTOPRAZOLE 40 MG TABLET PO SCH (18:03)
[2020-12-05] MEDS: ATORVASTATIN 40 MG TAB PO SCH (18:03)
[2020-12-05] MEDS: atenoloL 25 MG TAB PO SCH (18:03)
[2020-12-05] MEDS: ASPIRIN 81 MG PO SCH (18:03)
[2020-12-05] MEDS: ALPRAZolam 0.25 MG TAB PO PRN (20:55)
--- NOTE | 2020-12-05 21:46 | P.PRCINT ---
Percutaneous Coronary Int. - Percutaneous Coronary Intervention Percutaneous Coronary Intervention: PROCEDURES PERFORMED: Left heart catheterization, bilateral coronary angiography, PCI of proximal to mid LAD with 2.75 x 33mm Xience SERGE, kissing balloon angioplasty diagonal 1 with a 2.5 NC balloon, IVUS INDICATION: Unstable angina, NSTEMI HISTORY: Patient is a pleasant 65-year-old male with a history of hypertension, ocular migraine, left eye blindness, hyperlipidemia, marijuana and CAD s/p PCI mid LAD and RCA 12/01/20. He had successful PCI of proximal to mid RCA and mid LAD. There was more proximal LAD diffuse mild to moderate disease noted at 50% stenosis however did not appear significant and "pinching" of a diagonal 2 branch however with ODILIA 3 flow and felt best treated medically. Unfortunately patient has had recurrent episodes of chest pain which are somewhat difficult with multiple complaints of dyspnea, shoulder pain, substernal chest pressure. He was however noted to have mildly elevated troponins and therefore recommendation was for repeat LHC with possible PCI. CONSENT:I have discussed the risks, benefits and alternative therapies for the above-mentioned procedure and for both sedation/analgesia as well as necessary blood product administration, if indicated, as they pertain to this patient. The patient has indicated understanding and acceptance of the risks and procedures discussed. PROCEDURE: After the risks, benefits and alternatives of the above mentioned procedure explained in detail with the patient, informed consent was obtained. Patient was taken to the catheterization lab and prepped and draped in usual fashion. 1% lidocaine was used to anesthetize the right radial artery. A 6- [place] sheath was placed in the right radial artery using modified Seldinger technique. Heparin was given to maintain an ACT > 250. A 6Fr FR 5 diagnostic catheter was used to engage the RCA and RCA angiography was performed in various views. The FR5 catheter was advanced into the LV and pressure measurements were obtained. Diagnostic left coronary angiography was performed with a 5Fr FL 3.5 catheter. The decision was made to performed IVUS of the LAD. Next a CLS 3.0 guide catheter was used to engage the left main. A 0.014 BMW wire was easily advanced into the distal vessel. An IVUS catheter was advanced into the LAD and IVUS was performed which showed reference vessel of 3.0 x 3.5 with diffuse mild to moderate plaque of the entire proximal to mid LAD with a more eccentric 85% stenosis of the proximal LAD just at the level of the diagonal 1 branch. Minimial luminal diameter of the left main was 8.7mm2 with diffuse mild left main stenosis also noted. Next balloon angioplasty was performed with a 2.5 x 12mm balloon. The entire segment was noted to be diseased and therefore a 2.75 a 33mm Xience SERGE was placed from proximal LAD to overlapping the previously placed mid LAD stent. There was 95% stenosis of the proximal diagonal 1 branch after stenting with ODILIA 3 flow and therefore balloon angioplasty was performed of the proximal diagonal 1 with a 2.5 x 12 mm compliant balloon. Next kissing balloon angioplasty of the diagonal 1 was performed with 2.5 x 12mm NC balloon in diagonal 1 and 3.0 x 12mm NC balloon in LAD. Angioplasty of the LAD stent was performed with the 3.0 NC balloon. Post IVUS showed still somewhat underexpanded stent with measurements of 2.5 x 3.0 and therefore final balloon angioplasty was performed with a 3.5 NC balloon from proximal to mid stent. Patient was complaining of some intermittent atypical chest and shoulder pain at times throughout the case however improved by end of case. Preintervention there was ODILIA 3 flow and 85% stenosis and post intervention there was ODILIA 3 flow with <10% stenosis, <20% stenosis of the proximal diagonal branch with no dissection. The wire was pulled and final angiograms were performed. The right radial sheath was removed and TR band placed with hemostasis achieved. Conscious Sedation: Patient was monitored under the direct supervision of vision of myself for conscious sedation using Versed and fentanyl for a total duration of 102 minutes HEMODYNAMICS: Aorta: 132/78 LV: 128/1, LVEDP 5mmHg SELECTIVE CORONARY ARTERIOGRAPHY: LEFT MAIN: The left main is a large caliber vessel which bifurcates into the LAD, and circumflex. There is diffuse left main 20-30% stenosis. LEFT ANTERIOR DESCENDING CORONARY ARTERY: LAD is a large caliber vessel which wraps around to the apex. There is proximal to mid diffuse 20-60% stenosis with a more focal 85% stenosis at the level of the diagonal 1 branch. There is a patent mid LAD stent with 70% stenosis of the diagonal 2 jailed branch. LEFT CIRCUMFLEX CORONARY ARTERY: Left circumflex is a moderate caliber vessel. There are mild luminal irregularities. RIGHT CORONARY ARTERY: The right coronary artery is a large caliber vessel which gives off the PDA and PLV and is the dominant vessel. There is a patent proximal to mid RCA stent and more distal 20-30% stenosis. FINAL IMPRESSION: 1. Successful PCI of proximal to mid LAD with 2.75 x 33mm Xience SERGE, kissing balloon angioplasty diagonal 1 with a 2.5 NC balloon 2. Low normal left sided filling pressures PLAN: 1. Aggressive risk factor modification per most recent ACC/AHA guidelines. 2. Continue dual antiplatelets for 12 months.
[2020-12-06] MEDS: PANTOPRAZOLE 40 MG TABLET PO SCH (06:34)
[2020-12-06] MEDS ORDERED: HEPARIN SODIUM,PORCINE 2,500 UNIT in SODIUM CHLORIDE 0.9% 250 ML IRRIGATION PRN (07:00)
[2020-12-06] MEDS ORDERED: HEPARIN SODIUM,PORCINE 10,000 UNIT in SODIUM CHLORIDE 0.9% 1,000 ML IRRIGATION PRN (07:00)
[2020-12-06] MEDS: ASPIRIN 81 MG PO SCH (08:13)
[2020-12-06] MEDS: atenoloL 25 MG TAB PO SCH (08:13)
[2020-12-06] MEDS: TICAGRELOR 90 MG TAB PO SCH ×2 (08:13→20:10)
[2020-12-06] MEDS: ATORVASTATIN 40 MG TAB PO SCH (08:13)
[2020-12-06 09:21] LABS: Calcium 9.1 mg/dL (8.4-10.2); Potassium 4.8 mmol/L (3.5-5.1)
[2020-12-06 09:27] LABS: Basophils # (A) 0.1 k/uL (0-0.2); Basophils % (A) 1 %; Eosinophils # (A) 0.2 k/uL (0-0.7); Eosinophils % (A) 3 %; HGB 15.6 gm/dL (13.0-17.5); Lymphocytes # (A) 1.1 k/uL (1.0-4.8); Lymphocytes % (A) 13 %; MCHC 34.5 g/dL (31.0-37.0); MCV 92.7 fL (80.0-100.0); Mean Platelet Volume 8.8; Monocytes # (A) 0.4 k/uL (0-1.0); Monocytes % (A) 5 %; Neutrophils # (A) 6.3 k/uL (1.3-7.7); Neutrophils % (A) 78 %; Platelet Count 208 k/uL (150-450); RBC 4.86 m/uL (4.30-5.90); RDW 13.6 % (11.5-15.5); WBC 8.1 k/uL (3.8-10.6)
[2020-12-06] MEDS: ALPRAZolam 0.25 MG TAB PO PRN ×2 (10:29→20:10)
[2020-12-06 11:22] VITALS: BMI 28.1
[2020-12-06] MEDS: SODIUM CHLORIDE 0.9% 1,000 ML IV SCH ×2 (12:39→20:16)
--- NOTE | 2020-12-06 15:06 | P.PN ---
Subjective This is a 65-year-old male with a past medical history significant for hypertension, hyperlipidemia, legally blind in left eye, and coronary artery d isease with recent PCI to proximal to mid RCA and mid LAD. Patient follows in the office with Dr. Siegel. We have been asked to see the patient in consultation for chest pain. EKG reveals sinus mechanism with no signs of acute ischemia. Cardiac catheterization history: 12/01/[address] Siegel with PCI to proximal to mid RCA and mid LAD. Chest xray negative for acute process Laboratory data: WBC 11.2. Hemoglobin 15.5. Platelet count 231. Sodium 136. Potassium 4.5. BUN 27. Creatinine 1.3. Troponin 0.122. 0.177. 0.197. Current home cardiac medications include lisinopril 10 mg daily, atenolol 25 mg daily, [place] to 90 mg twice a day, Lipitor 40 mg daily, and aspirin 81 mg daily. Most recent echocardiogram obtained on 12/02/2020 reveals ejection fraction 55-60% with no evidence of pericardial effusion 12/06/2020: Patient underwent cardiac catheterization with PCI to the mid LAD yesterday with Dr. Siegel. patient seen and examined at bedside, no acute distress. States he sometimes have chest pressure, but feels it is more anxiety. He denies exertional chest pain, non-radiating, no diaphoresis, no nausea. Does not feel the same as yesterday's chest pain. He is Able to complete ADLs without any chest pain. He denies palpitations, shortness of breath. blood pressure 116/76, heart rate in 60s, maintaining oxygen saturation is on room air, afebrile. Telemetry reviewed, patient in sinus mechanism HR 50-60s. PHYSICAL EXAM: VITAL SIGNS: Reviewed. GENERAL: Well-developed in no acute distress. HEENT: Head is normocephalic. Pupils are equal, round. Sclerae anicteric. Mucous membranes of the mouth are moist. Neck supple. No JVD or thyromegaly LUNGS: Respirations even and unlabored. Lungs essentially clear to auscultation bilaterally. HEART: Regular rate and rhythm. S1 and S2 heard. ABDOMEN: Soft. Nondistended. Nontender. EXTREMITIES: Normal range of motion. No clubbing or cyanosis. Peripheral pulses intact. No lower extremity edema NEUROLOGIC: Awake and alert. Oriented x 3. ASSESSMENT: Chest pain, possible NSTEMI Coronary artery disease with recent PCI to RCA and LAD, 12/01/2020 and PCI to mid LAD yesterday 12/05/2020 Hypertension Hyperlipidemia Legally blind left eye Marijuana use PLAN: Continue home cardiac medications: Aspirin 81 mg daily, lisinopril 10 mg daily, Dilantin 90 mg twice a day, atorvastatin 40 mg daily, atenolol 25 mg daily From cardiology perspective, patient is stable Follow up with Dr. Siegel in 1 week outpatient. Nurse practitioner note has been reviewed by physician. Signing provider agrees with the documented findings, assessment, and plan of care. Objective - Vital Signs Vital signs: Vital Signs Temp 98.2 F 12/05/20 20:00 Pulse 64 12/06/20 04:00 Resp 17 12/06/20 04:00 BP 116/76 12/06/20 04:00 Pulse Ox 99 12/06/20 07:52 Intake & Output 12/05/20 12/06/20 12/06/20 18:59 06:59 18:59 Intake Total 400 1400 780 Balance 400 1400 780 Weight 90.718 kg 89.1 kg 89.1 kg Intake: IV 200 Intake, IV Titration 200 1200 Amount Sodium Chloride 0.9% 1, 200 1200 000 ml @ 150 mls/hr IV . Q6H40M [facility] Rx#:[id number] Oral 200 780 Other: Voiding Method Toilet Urinal # Voids 1 2 - Labs CBC & Chem 7: 12/06/20 08:16 12/06/20 08:16 Labs: Abnormal Lab Results - Last 24 Hours (Table) 12/06/20 Range/Units 08:16 Glucose 104 H (74-99) mg/dL
--- NOTE | 2020-12-06 17:07 | PN ---
PROGRESS NOTE DATE OF SERVICE: 12/06/2020 This 65-year-old gentleman with a past medical history of multiple medical problems was admitted with chest pain and the patient had cardiac catheterization as well as stenting of the LAD and balloon angioplasty of the diagonal. No chest pain. No palpitations. No fever. Patient has minimal chest pain this morning. PHYSICAL EXAMINATION: Alert and oriented x3. Pulse 64, blood pressure 116/76, respiration 17, temperature normal, pulse ox 97% on room air. HEENT: Conjunctivae normal. NECK: No jugular venous distention. CARDIOVASCULAR SYSTEM: S1, S2 muffled. RESPIRATORY SYSTEM: Breath sounds diminished at the bases. No rhonchi. No crackles. ABDOMEN: Soft. NERVOUS SYSTEM: No focal deficit. LABS: CBC and BMP noted. ASSESSMENT: 1. Chest pain; possible acute ffr-TB-rwnyami-elevation myocardial infarction with troponin 1.22, status post cardiac catheterization and PCI of the proximal to mid LAD as well as balloon angioplasty of the diagonal. 2. History of recent stenting and cardiac catheterization. 3. Hyponatremia. 4. Increased creatinine with possible acute renal failure with acute tubular necrosis, present on admission. 5. Hypertension. 6. Legal blindness of the left eye. 7. History of degenerative joint disease. 8. History of tetrahydrocannabinol. 9. FULL CODE. RECOMMENDATIONS AND DISCUSSION: I recommend to continue current medications, continue with the monitoring, symptomatic treatment. Continue with the antiplatelet agents. The creatinine has improved significantly. Will continue to monitor. Repeat labs. Closely follow with Cardiology. Further recommendations to follow. MMODL / IJN: [id number] /
[2020-12-07] MEDS: PANTOPRAZOLE 40 MG TABLET PO SCH (06:37)
[2020-12-07] MEDS: ASPIRIN 81 MG PO SCH (08:50)
[2020-12-07] MEDS: atenoloL 25 MG TAB PO SCH (08:50)
[2020-12-07] MEDS: ATORVASTATIN 40 MG TAB PO SCH (08:50)
[2020-12-07] MEDS: TICAGRELOR 90 MG TAB PO SCH (08:51)
[2020-12-07 13:05] VITALS: BP 144/84; PULSE 55; RESP 17; TEMP 97.8
--- NOTE | 2020-12-07 14:13 | P.DS ---
Providers Date of admission: 12/05/20 16:20 Expected date of discharge: 12/07/20 Attending physician: Jamin Denis Consults: 12/04/20 18:05 Consult Physician Routine Consulting Provider: Armando Scott Consult Reason/Comments: CP Do you want consulting provider notified?: Already Contacted 12/05/20 14:52 Consult Physician Routine Consulting Provider: Cardiology Den Consult Reason/Comments: Post Interventional patient Do you want consulting provider notified?: Already Contacted Primary care physician: Felicia Medrano Hospital Course: Final diagnosis Chest pain, possible acute non-ST segment elevation myocardial infarction with troponin 1.22 status post cardiac catheterization and PCI of the proximal to mid LAD as well as balloon angioplasty of the diagonal History of recent stenting and cardiac catheterization Hyponatremia Increased creatinine with possible acute renal failure with acute tubular necrosis, present on admission Hypertension Legal blindness of the left eye History of degenerative joint disease history of THC Anxiety Full code Discharge disposition Patient is being discharged in a stable condition with guarded prognosis to home. Patient will follow-up with Dr. Medrano in the outpatient setting upon discharge. Patient is to follow-up with cardiology Dr. Siegel as scheduled. Patient will continue with aspirin and Brilinta upon discharge. Prescription provided for repeat labs to monitor kidney functions in 2-3 days. Total time taken is greater than 35 minutes. Hospital course This is a 65year-old male who was recently admitted with chest pain and was being closely monitored. Patient was seen and evaluated by cardiology and underwent cardiac catheterization along with stenting of the LAD and balloon angioplasty of the diagonal. Patient will follow-up with cardiology Dr. Siegel in 1-2 weeks. Patient will continue on Brilinta along with aspirin in the outpatient setting. Currently no reports of chest pain, shortness of breath, or palpitations. Patient is afebrile. No reports of nausea or vomiting and patient is tolerating diet. Patient will be discharged home today. On exam vital signs are stable. Cardio S1, S2 are muffled. Respiratory system shows diminished breath sounds at the bases with no wheezing or rhonchi noted. Abdomen is soft and nontender. Nervous system shows no focal deficits. Please refer to medication reconciliation sheet for a list of medications. Patient Condition at Discharge: Stable Plan - Discharge Summary Discharge Rx Participant: No New Discharge Prescriptions: New Acetaminophen Tab [Tylenol] 650 mg PO Q6HR PRN tab PRN Reason: Mild Pain Or Fever > 100.5 ALPRAZolam [Xanax] 0.25 mg PO TID PRN #10 tab PRN Reason: Anxiety Continue Aspirin 81 mg PO DAILY Multivitamins, Thera [Multivitamin (formulary)] 1 tab PO DAILY Ticagrelor [Brilinta] 90 mg PO BID #60 tab Atorvastatin [Lipitor] 40 mg PO DAILY #30 tablet atenoloL [Tenormin] 25 mg PO DAILY tab Discontinued lisinopriL [Zestril] 10 mg PO DAILY Discharge Medication List Aspirin 81 mg PO DAILY 01/13/14 [History] Multivitamins, Thera [Multivitamin (formulary)] 1 tab PO DAILY 11/05/16 [History] Atorvastatin [Lipitor] 40 mg PO DAILY #30 tablet 12/02/20 [Rx] Ticagrelor [Brilinta] 90 mg PO BID #60 tab 12/02/20 [Rx] atenoloL [Tenormin] 25 mg PO DAILY tab 12/02/20 [Rx] ALPRAZolam [Xanax] 0.25 mg PO TID PRN #10 tab 12/07/20 [Rx] Acetaminophen Tab [Tylenol] 650 mg PO Q6HR PRN tab 12/07/20 [Rx] Follow up Appointment(s)/Referral(s): Deion Siegel DO [STAFF PHYSICIAN] - 1 Week (Office will call you with an appointment. ) Felicia Medrano DO [Primary Care Provider] - 12/13/20 11:20 am Ambulatory/Diagnostic Orders: Basic Metabolic Panel [LAB.AMB] Time Frame: 3 Days, Location: None Selected Patient Instructions/Handouts: Coronary Artery Disease (DC), Left Heart Catheterization (DC) Activity/Diet/Wound Care/Special Instructions: Activity Limited until follow-up follow up with primary care provider upon discharge follow up with cardiology outpatient in one week Continue current medications Continue to hold lisinopril and repeat labs in 2-3 days to monitor kidney functions until cardiology follow-up Keep a diary of blood pressure readings for primary care and cardiology follow- up Continue heart healthy diet Discharge Disposition: HOME SELF-CARE
== END 2020-12-07 14:52 | disposition home or self-care (01) | DRG 246 ==
LOC: EC 15:33 → UNDOADMOB 18:05 → 6NMEDSUR 18:05 → 3SCARD 12-05 16:06 → 6NMEDSUR 12-05 16:06 → INTOOBSV 12-05 16:20 → OBSVTOIN 12-05 16:20 → UNDODISIN 12-07 14:52
PROVIDERS: ADMIT Hospitalist; ATTEND Hospitalist
PROC: 027134Z Dilation of Coronary Artery, Two Arteries with Drug-eluting Intraluminal Device, Percutaneous Approach (ICD-10-PCS; principal; 2020-12-05 11:40)
PROC: 4A023N7 Measurement of Cardiac Sampling and Pressure, Left Heart, Percutaneous Approach (ICD-10-PCS; 2020-12-05 11:40)
PROC: B2111ZZ Fluoroscopy of Multiple Coronary Arteries using Low Osmolar Contrast (ICD-10-PCS; 2020-12-05 11:40)
PROC: B240ZZ3 Ultrasonography of Single Coronary Artery, Intravascular (ICD-10-PCS; 2020-12-05 11:40)
DX: I21.4 Non-ST elevation (NSTEMI) myocardial infarction (principal); N17.0 Acute kidney failure with tubular necrosis; E87.1 Hypo-osmolality and hyponatremia; I10 Essential (primary) hypertension; Z20.822 Contact with and (suspected) exposure to COVID-19; H54.8 Legal blindness, as defined in USA; R77.8 Other specified abnormalities of plasma proteins; Z79.82 Long term (current) use of aspirin; I25.10 Atherosclerotic heart disease of native coronary artery without angina pectoris; Z79.02 Long term (current) use of antithrombotics/antiplatelets; Z95.5 Presence of coronary angioplasty implant and graft; E78.5 Hyperlipidemia, unspecified; F41.9 Anxiety disorder, unspecified
CPT/HCPCS: 36415; 71046; 80048; 80053; 83690; 83735; 84484; 85025; 85347; 85610; 85730; 87635; 92921; 92978; 93005; 93458; 94760; 96374; 99285

== ENCOUNTER → 2021-09-12 | Outpatient (CLI) | payer MEDICARE, BC ==
--- NOTE | 2021-09-12 14:00 | CT ---
EXAMINATION TYPE: CT abdomen pelvis w con DATE OF EXAM: 09/12/2021 COMPARISON: CT abdomen and pelvis January 13, 2020 and older study 2018 HISTORY: Lower abdominal pain, weight loss CT DLP: 712.6 mGycm, Automated Exposure Control for Dose Reduction was Utilized. CONTRAST: CT scan of the abdomen and pelvis is performed with oral and with IV Contrast, patient injected with 100 mL of Isovue 300. FINDINGS: LUNG BASES: No significant abnormality is appreciated. LIVER/GB: No significant abnormality is appreciated. PANCREAS: No significant abnormality is seen. SPLEEN: No significant abnormality is seen. ADRENALS: No significant abnormality is seen. KIDNEYS: Stable 9 mm calculus in the left kidney mid to lower pole level coronal image 59. Symmetric cortical medullary uptake and excretion without hydronephrosis seen bilaterally. BOWEL: Oral contrast reaches level of sigmoid colon. No suspicious small and large bowel dilatation. Appendix is not seen and presumed surgically absent similar to prior. PROSTATE/SEMINAL VESICLES: 1 enlarged prostate consistent with BPH bulging and bladder base is redemo nstrated. Adjacent scattered pelvic phleboliths incidentally noted. LYMPH NODES: No greater than 1cm abdominal or pelvic lymph nodes are appreciated. OSSEOUS STRUCTURES: No significant abnormality is seen. OTHER: No significant additional abnormality is seen. IMPRESSION: No significant new or acute finding is seen to account for patient's clinical symptoms o f lower abdominal pain and weight loss.
== END | disposition home or self-care (01) ==
LOC: RADCTMAIN 11:47
PROVIDERS: ATTEND Family Medicine
DX: R10.30 Lower abdominal pain, unspecified (principal); R63.4 Abnormal weight loss
CPT/HCPCS: 82565; 84520; 74177; 36415; Q9967

== ENCOUNTER → 2022-01-24 | Outpatient (CLI) | payer MEDICARE, BC ==
--- NOTE | 2022-01-24 10:21 | XR ---
Right shoulder HISTORY: Right shoulder pain Multiplanar multisequence imaging obtained through the right shoulder No comparisons There is arthropathy, joint space loss and marginal spurring at the glenohumeral joint, there may be subchondral cyst formation in the bony glenoid. Slight inferior displacement of the humeral head in r elation to the bony glenoid noted. No fracture or dislocation. Suspect a distal acromial spur. Right lung as visualized is unremarkable. IMPRESSION: Osteoarthritis, possible acromial spur, correlate for impingement, shoulder MRI may be of benefit.
== END | disposition home or self-care (01) ==
LOC: RADXRYALE 08:47
PROVIDERS: ATTEND Physician Assistant
DX: M19.011 Primary osteoarthritis, right shoulder (principal)

== ENCOUNTER → 2022-07-17 | Outpatient (CLI) | payer MEDICARE ==
--- NOTE | 2022-07-17 19:25 | XR ---
EXAMINATION TYPE: XR cervical spine comp DATE OF EXAM: 07/17/2022 4:11 PM INDICATION: Patient age:Male; 66 years old; Reason for study: [id number] CERVICALGIA,NECK INJURY; YCH. COMPARISON: None TECHNIQUE: The cervical spine was imaged in frontal, lateral, odontoid and bilateral oblique. FINDINGS: The osseous structures show normal alignment without evidence of an acute fracture. There are osteoph ytes noted throughout the cervical spine on the anterior and lateral aspects of the vertebral bodies. The intervertebral disk spaces are preserved. Pedicles are intact. Soft tissues are within normal limits. The odontoid appears intact. IMPRESSION: 1. No fracture or dislocation. 2. Mild degenerative disc disease changes of the cervical spine.
== END | disposition home or self-care (01) ==
LOC: RADXRYALE 15:54
PROVIDERS: ATTEND Family Medicine
DX: M50.30 Other cervical disc degeneration, unspecified cervical region (principal)
CPT/HCPCS: 72050

== ENCOUNTER → 2022-09-14 | Outpatient (CLI) | payer MEDICARE, BC ==
--- NOTE | 2022-09-15 08:16 | CT ---
EXAMINATION TYPE: CT abdomen pelvis w con CT DLP: 517.4 mGycm, Automated exposure control for dose reduction was used. DATE OF EXAM: 09/14/2022 6:58 PM COMPARISON: CT abdomen pelvis most recent from 09/12/2021 CLINICAL INDICATION:Male, 67 years old with history of R10.30 LOWER ABDOMINAL PAIN, R63.4 ABN WEIGHT LOSS; abdominal pain and weight loss TECHNIQUE: Axial CT of the abdomen and pelvis. Sagittal and coronal reformats were created on a [employer] workstation. Contrast used:80cc mL of Isovue 300 with IV Contrast, Oral contrast used: with Oral Contrast FINDINGS: LOWER CHEST: Unremarkable ABDOMEN LIVER: Unremarkable GALLBLADDER AND BILE DUCTS: Unremarkable. PANCREAS: Unremarkable. SPLEEN: Unremarkable. ADRENAL GLANDS: Unremarkable. KIDNEYS AND URETERS: Nonobstructive 7 x 4 mm left calculus. No evidence of right obstructive uropathy . No evidence of left obstructive uropathy. PELVIS BLADDER: Unremarkable REPRODUCTIVE: Prostate is enlarged in size measuring 4.9 cm in transverse dimension. ABDOMEN & PELVIS STOMACH AND BOWEL: No evidence of bowel obstruction. PERITONEUM/RETROPERITONEUM: No evidence of pneumoperitoneum or free fluid. . VASCULATURE: No evidence of aortic aneurysm. Scattered atherosclerosis of the arterial vasculature. MUSCULOSKELETAL: No acute osseous abnormalities LYMPH NODES: No gross evidence for lymphadenopathy. SOFT TISSUE/ABDOMINAL WALL: Left fat-containing inguinal hernia. IMPRESSION: 1. No acute intra-abdominal process or evidence of mass. 2. Left nonobstructing renal calculus. 3. Prostatomegaly correlate with serum PSA. 4. Left inguinal fat-containing hernia.
== END | disposition home or self-care (01) ==
LOC: RADCTMAIN 17:20
PROVIDERS: ATTEND Family Medicine
DX: Z01.812 Encounter for preprocedural laboratory examination (principal); N20.0 Calculus of kidney; N40.0 Benign prostatic hyperplasia without lower urinary tract symptoms; K40.90 Unilateral inguinal hernia, without obstruction or gangrene, not specified as recurrent; R10.30 Lower abdominal pain, unspecified; R63.4 Abnormal weight loss
CPT/HCPCS: 82565; 84520; 74177; 36415; Q9967 ×2

== ENCOUNTER → 2022-12-18 | Outpatient (CLI) | payer MEDICARE, BC ==
--- NOTE | 2022-12-19 07:48 | XR ---
EXAMINATION TYPE: XR KUB DATE OF EXAM: 12/18/2022 COMPARISON: CT 09/14/2022 INDICATION: Renal stones TECHNIQUE: Single view abdomen frontal projection FINDINGS: There is a normal bowel gas pattern. Psoas margins are normal. No organomegaly is present. No renal stones are identified. Phleboliths may be within the pelvis. IMPRESSION: 1. Unremarkable Abdomen
== END | disposition home or self-care (01) ==
LOC: RADXRYALE 11:31
PROVIDERS: ATTEND Urology
DX: N20.0 Calculus of kidney (principal)
CPT/HCPCS: 74018

== ENCOUNTER 2024-10-29 17:58 | Observation (INO) | payer MEDICARE, BC ==
--- NOTE | 2024-10-29 18:12 | ED ---
Chest Pain HPI - General Source: patient, RN notes reviewed Mode of arrival: ambulatory Limitations: no limitations <Sheyla Cook - Last Filed: 10/29/24 18:11> - General Source: patient, RN notes reviewed Mode of arrival: ambulatory Limitations: no limitations <Tom Salazar - Last Filed: 10/29/24 19:21> - General Stated Complaint: chest pain Time Seen by Provider: 10/29/24 18:11 - History of Present Illness Initial Comments: Quick note: 69-year-old male presented to the ER for evaluation of chest discomfort. Patient states he has a history of cardiac stents and follows up with Dr. Siegel. Today patient was having difficulty breathing and started to experience a chest pressure. He also noted elevated blood pressures at that time. He states he feels "funny". (Sheyla Cook) Patient is a 69-year-old male present to the emergency department with concerns with chest discomfort. Onset of symptoms around 4:00 today. Patient was walking at the time, light exertion. Discomfort has improved and is mild at this time rated 2/10. Discomfort feels like tightness or indigestion. There is some mild associated dyspnea earlier. No nausea. No diaphoresis. Patient does have history of previous cardiac disease including stents with somewhat similar symptoms. (Tom Salazar) - Related Data Home Medications Medication Instructions Recorded Confirmed Aspirin 81 mg PO DAILY 01/13/14 12/05/21 Atorvastatin [Lipitor] 40 mg PO HS 11/30/21 12/05/21 lisinopriL [Zestril] 5 mg PO DAILY 11/30/21 12/05/21 Ticagrelor [Brilinta] 1 tab PO BID 12/05/21 12/05/21 Allergies Allergy/AdvReac Type Severity Reaction Status Date / Time No Known Allergies Allergy Verified 10/29/24 18:17 Review of Systems ROS Other: All systems not noted in ROS Statement are negative. <Sheyla Cook - Last Filed: 10/29/24 18:11> ROS Other: All systems not noted in ROS Statement are negative. Constitutional: Denies: fever Eyes: Denies: eye pain ENT: Denies: ear pain Respiratory: Reports: as per HPI Cardiovascular: Reports: as per HPI, chest pain Endocrine: Denies: fatigue Gastrointestinal: Denies: nausea, vomiting Musculoskeletal: Denies: back pain <Tom Salazar - Last Filed: 10/29/24 19:21> ROS Statement: Those systems with pertinent positive or pertinent negative responses have been documented in the HPI. EKG Findings - EKG Results: EKG: interpreted by JOANNA, sinus rhythm, normal axis, normal QRS, normal ST/T <Tom Salazar - Last Filed: 10/29/24 19:21> Past Medical History Past Medical History: Coronary Artery Disease (CAD), Eye Disorder, Hyperlipidemia, Hypertension Additional Past Medical History / Comment(s): L eye legally blind, L eye glaucoma, ocular migraines History of Any Multi-Drug Resistant Organisms: None Reported Past Surgical History: Appendectomy, Heart Catheterization With Stent, Joint Replacement, Orthopedic Surgery Additional Past Surgical History / Comment(s): L eye injury with surgery, L eye bleb inserted for glaucoma and later removed, L eye cataract removal, total R knee replacement, L wrist carpal tunnel release, colonoscopy Past Anesthesia/Blood Transfusion Reactions: No Reported Reaction Date of Last Stent Placement:: 12/05/20 Additional Psychological History / Comment(s): Pt resides with his spouse. He is independent. Past Alcohol Use History: Occasional Additional Drug Use History / Comment(s): has medical marijuana card -uses on occassion to relax - Past Family History Brother(s) Family Medical History: Cancer Additional Family Medical History / Comment(s): brain Father Family Medical History: Myocardial Infarction ([place]) Additional Family Medical History / Comment(s): Father had several MIs with first Mi at age 50 yrs. He also had a pacemaker. Mother Family Medical History: Cancer, Myocardial Infarction ([place]) Additional Family Medical History / Comment(s): Mother had a [place] at the age of 80yrs. She of ovarian cancer at the age of 85 yrs. <Sheyla Cook - Last Filed: 10/29/24 18:11> General Exam <Sheyla Cook - Last Filed: 10/29/24 18:11> Limitations: no limitations General appearance: alert, in no apparent distress Head exam: Present: normocephalic Neck exam: Present: normal inspection Respiratory exam: Present: normal lung sounds bilaterally. Absent: chest wall tenderness Cardiovascular Exam: Present: regular rate, normal rhythm, normal heart sounds Expanded Peripheral pulses: 2+: Radial (R), Radial (L), Posterior Tibialis (R), Posterior Tibialis (L) GI/Abdominal exam: Present: soft. Absent: tenderness Extremities exam: Present: normal inspection. Absent: pedal edema, calf tenderness Neurological exam: Present: alert Psychiatric exam: Present: normal affect, normal mood Skin exam: Present: normal color <Tom Salazar - Last Filed: 10/29/24 19:21> - General Exam Comments Initial Comments: Visual Physical Exam Vital signs reviewed General: Well-appearing, nontoxic, no acute distress. Head: Normocephalic, atraumatic Eyes: PERRLA, EOMI ENT: Airway patent Chest: Nonlabored breathing Skin: No visual rash, normal skin tone Neuro: Alert and oriented 3 Musculoskeletal: No gross abnormalities (Sheyla Cook) Course Vital Signs 10/29/24 18:15 Temperature 97.2 F L Pulse Rate 61 Respiratory 17 Rate Blood Pressure 139/84 O2 Sat by Pulse 98 Oximetry Chest Pain MDM <Sheyla Cook - Last Filed: 10/29/24 18:11> <Tom Salazar - Last Filed: 10/29/24 19:21> - MDM I performed the quick note portion of this chart. Electronically signed by Sheyla Cook PA-C (Sheyla Cook) Was pt. sent in by a medical professional or institution (VENANCIO Humphrey, NURSERY HELPER, urgent care, hospital, or alf...) When possible be specific @ -No Did you speak to anyone other than the patient for history (EMS, parent, family, police, friend...)? What history was obtained from this source @ - is present helps right history of patient's previous cardiac disease Did you review nursing and triage notes (agree or disagree)? Why? @ -I reviewed and agree with nursing and triage notes Were old charts reviewed (outside hosp., previous admission, EMS record, old EKG, old radiological studies, urgent care reports/EKG's, alf records)? Report findings @ -No old charts were reviewed Differential Diagnosis (chest pain, altered mental status, abdominal pain women, abdominal pain men, vaginal bleeding, weakness, fever, dyspnea, syncope, headache, dizziness, GI bleed, back pain, seizure, CVA, palpatations, mental health, musculoskeletal)? @ -Differential Chest Pain: Stable Angina, Unstable Angina, STEMI, NSTEMI Aortic Dissection, Pneumothorax, Musculoskeletal, Esophageal Spasm GERD, Cholecystitis, Pancreatitis, Zoster, this is not meant to be an all-inclusive list. EKG interpreted by me (3pts min.). @ -As above X-rays interpreted by me (1pt min.). @ -Chest x-ray shows no acute process CT interpreted by me (1pt min.). @ -None done U/S interpreted by me (1pt. min.). @ -None done What testing was considered but not performed or refused? (CT, X-rays, U/S, labs)? Why? @ -None What meds were considered but not given or refused? Why? @ -None Did you discuss the management of the patient with other professionals (professionals i.e. , PA, NURSERY HELPER, lab, RT, psych nurse, social sciences lecturer, sql dba, teacher, vessel traffic officer, case reviewer)? Give summary @ -Case discussed with Dr. Mckeon who will admit covering Dr. Blanco me Was smoking cessation discussed for >3mins.? @ -No Was critical care preformed (if so, how long)? @ -No Were there social determinants of health that impacted care today? How? (Homelessness, low income, unemployed, alcoholism, drug addiction, transportation, low edu. Level, literacy, decrease access to med. care, assisted, rehab)? @ -No Was there de-escalation of care discussed even if they declined (Discuss DNR or withdrawal of care, Hospice)? DNR status @ -No What co-morbidities impacted this encounter? (DM, HTN, Smoking, COPD, CAD, Cancer, CVA, ARF, Chemo, Hep., AIDS, mental health diagnosis, sleep apnea, morbid obesity)? @ -History of cardiac disease with similar symptoms Was patient admitted / discharged? Hospital course, mention meds given and route, prescriptions, significant lab abnormalities, going to OR and other pertinent info. @ -Patient presents with chest discomfort mild at this time. Initial evaluation unremarkable. Patient reevaluated and updated. Patient will be admitted with cardiac consult. Admission orders written. Undiagnosed new problem with uncertain prognosis? @ -No Drug Therapy requiring intensive monitoring for toxicity (Heparin, Nitro, Insulin, Cardizem)? @ -No Were any procedures done? @ -No Diagnosis/symptom? @ -Chest pain Acute, or Chronic, or Acute on Chronic? @ -Acute Uncomplicated (without systemic symptoms) or Complicated (systemic symptoms)? @ -Default Side effects of treatment? @ -No Exacerbation, Progression, or Severe Exacerbation? @ -No Poses a threat to life or bodily function? How? (Chest pain, [place], [place], pneumonia, PE, COPD, DKA, ARF, appy, cholecystitis, CVA, Diverticulitis, Homicidal, Suicidal, threat to staff... and all critical care pts) @ -No (Tom Salazar) Disposition <Sheyla Cook - Last Filed: 10/29/24 18:11> Is patient prescribed a controlled substance at d/c from ED?: No Time of Disposition: 19:21 <Tom Salazar - Last Filed: 10/29/24 19:21> Clinical Impression: Chest pain Disposition: ADMITTED IP TO THIS HOSP Referrals: Ignacio Willard DO [Primary Care Provider] - 1-2 days
[2024-10-29 18:18] LABS: Basophils % (A) 0 %; Eosinophils # (A) 0.2 k/uL (0-0.7); Eosinophils % (A) 2 %; HCT 50.5 % (39.0-53.0); HGB 16.3 gm/dL (13.0-17.5); Lymphocytes # (A) 2.3 k/uL (1.0-4.8); Lymphocytes % (A) 25 %; MCH 28.9 pg (25.0-35.0); MCHC 32.3 g/dL (31.0-37.0); MCV 89.5 fL (80.0-100.0); Mean Platelet Volume 7.8; Monocytes # (A) 0.4 k/uL (0-1.0); Monocytes % (A) 4 %; Neutrophils % (A) 67 %; Platelet Count 197 k/uL (150-450); RBC 5.65 m/uL (4.30-5.90); RDW 15.6 % (11.5-15.5); WBC 9.1 k/uL (3.8-10.6)
[2024-10-29 18:28] LABS: INR 0.9 (<1.2); Partial Thromboplastin Time 23.1 sec (22.0-30.0); Prothrombin Time 10.6 sec (10.0-12.5)
[2024-10-29 18:38] LABS: ALT 35 U/L (4-49); AST 34 U/L (17-59); African American GFR (CKD) 76 (>60 ml/min/1.73 sqM); Albumin 4.1 g/dL (3.5-5.0); Alkaline Phosphatase 109 U/L (38-126); Anion Gap 14 mmol/L; Blood Urea Nitrogen 22 mg/dL (9-20); Calcium 9.1 mg/dL (8.4-10.2); Carbon Dioxide 18 mmol/L (22-30); Chloride 105 mmol/L (98-107); Glucose 89 mg/dL (74-99); Non-African American GFR(CKD) 66 (>60 ml/min/1.73 sqM); Potassium 4.1 mmol/L (3.5-5.1); Sodium 137 mmol/L (137-145); Total Bilirubin 0.8 mg/dL (0.2-1.3); Total Protein 6.8 g/dL (6.3-8.2)
--- NOTE | 2024-10-29 18:44 | XR ---
EXAMINATION TYPE: XR chest 2V DATE OF EXAM: 10/29/2024 6:34 PM COMPARISON: None. CLINICAL INDICATION: Male, 69 years old with history of Chest Pain, TECHNIQUE: XR chest 2V view(s) obtained. FINDINGS: The heart size is normal. The pulmonary vasculature is normal. The lungs are clear. IMPRESSION: 1. No acute pulmonary process. [facility], , 10/29/2024 6:42 PM
[2024-10-29] MEDS ORDERED: NITROGLYCERIN SL TABS 0.4 MG TAB SUBLINGUAL PRN (19:22)
[2024-10-29] MEDS: ASPIRIN 81 MG PO STA (20:47)
[2024-10-29] MEDS: ATORVASTATIN 40 MG TAB PO SCH (20:53)
[2024-10-29] MEDS: NITROGLYCERIN OINT 1 INCH/GM PACKET TOPICAL STA (20:54)
[2024-10-29] MEDS: OFLOXACIN 0.3% OPHTH DROPS 5 ML BOTTLE LEFT EYE SCH (21:22)
--- NOTE | 2024-10-30 00:09 | P.HPIM ---
History of Present Illness H&P Date: 10/29/24 History of present illness; Patient is a 69-year-old male w/ CAD and multiple stent placements, hyper lipidemia, hypertension who presents with chest pain. Patient symptoms began today at 4 this afternoon. Patient describes pain as tightness or heartburn like in sensation and was was located centrally, radiating to axilla bilaterally. He was outside walking and "kicking around some snow" when pain first occurred. Pain 2 out of 10 in severity. Initial pain lasted for about 2 hours and is now intermittent. He also describes associated dyspnea, lightheadedness, and nausea. Denies recent immobilization or pleuritic pain. Patient reports absence of fever, chills, palpitations, diaphoresis, cough, abdominal pain, vomiting, constipation, diarrhea, weakness, myalgia, dizziness, headache, and dysuria. Spoke with the ER physician, patient admission was accepted by internal medicine service for treatment. REVIEW OF SYSTEMS: Pertinent positives and negatives noted in HPI. PHYSICAL EXAMINATION: Vitals reviewed GENERAL: Resting comfortably in bed. EYES: PERRL, no scleral injection or icterus. Left eye keratosis. HENT: Normocephalic, atraumatic, hearing acuity intact, moist mucous membranes NECK: No tracheal deviation, full range of motion. CARDIOVASCULAR: S1 and S2 present. No murmurs, rubs, or gallops. PULMONARY: Chest is clear to auscultation, no wheezing, rhonchi, or crackles. ABDOMEN: Soft, nontender, nondistended. No palpable organomegaly. MUSCULOSKELETAL: No apparent joint swelling and deformities. EXTREMITIES: No apparent cyanosis, clubbing. No pedal edema. NEUROLOGICAL: Alert and oriented. Gross neurological examination with no apparent focal deficits. SKIN: No apparent rashes. ER FINDINGS: Labs significant for WBC 9.1, sodium 137, bicarb 18, BUN 22, creatinine 1.14, troponin <0.012 EKG independently interpreted showed sinus bradycardia heart rate of 57, no ST segment elevation or depression seen, no T-wave inversions seen. Chest x-ray done independently interpreted showed no acute cardiopulmonary process. Assessment and Plan: In summary, patient is a 69-year-old male with CAD and multiple stent placements, hyperlipidemia, hypertension who presents with chest pain. #Atypical chest pain -trend troponins, initial <0.012 -HbA1c ordered -TSH and lipids are WNL in 10/2024 -given aspirin 324, resume home aspirin 81mg qd -C/w Lipitor 40 mg po qhs Cardiac monitoring -Cardiology consulted Chronic Medical Conditions #Essential hypertension - Resume home Lisinopril #Coronary artery disease with multiple stent placements - Resume home Aspirin, Atorvastatin #Hyperlidemia - Resume home Atorvastatin DVT ppx: Subq Lovenox 40 meq daily Code status: Full code F: P.o. E: Replete as needed N: Heart healthy diet A: Ambulatory Anticipated discharge place: Home Anticipated discharge time: Tomorrow Dictation was produced using [employer] dictation software. Please excuse any grammatical, word or spelling errors. Past Medical History Past Medical History: Coronary Artery Disease (CAD), Eye Disorder, Hyperlipidemia, Hypertension Additional Past Medical History / Comment(s): L eye legally blind, L eye glaucoma, ocular migraines History of Any Multi-Drug Resistant Organisms: None Reported Past Surgical History: Appendectomy, Heart Catheterization With Stent, Joint Replacement, Orthopedic Surgery Additional Past Surgical History / Comment(s): L eye injury with surgery, L eye bleb inserted for glaucoma and later removed, L eye cataract removal, total R knee replacement, L wrist carpal tunnel release, colonoscopy Past Anesthesia/Blood Transfusion Reactions: No Reported Reaction Date of Last Stent Placement:: 12/05/20 Past Psychological History: No Psychological Hx Reported Smoking Status: Never smoker Past Alcohol Use History: Occasional Past Drug Use History: Marijuana - Past Family History Brother(s) Family Medical History: Cancer Additional Family Medical History / Comment(s): brain Father Family Medical History: Myocardial Infarction ([place]) Additional Family Medical History / Comment(s): Father had several MIs with first Mi at age 50 yrs. He also had a pacemaker. Mother Family Medical History: Cancer, Myocardial Infarction ([place]) Additional Family Medical History / Comment(s): Mother had a [place] at the age of 80yrs. She of ovarian cancer at the age of 85 yrs. Medications and Allergies Home Medications Medication Instructions Recorded Confirmed Type Aspirin 81 mg PO DAILY 01/13/14 10/29/24 History Atorvastatin [Lipitor] 40 mg PO HS 11/30/21 10/29/24 History lisinopriL [Zestril] 5 mg PO DAILY 11/30/21 10/29/24 History Ofloxacin 0.3% Ophth Soln [Ocuflox 1 drop LEFT EYE TID 10/29/24 10/29/24 History Ophth Soln] Allergies Allergy/AdvReac Type Severity Reaction Status Date / Time No Known Allergies Allergy Verified 10/29/24 19:26 Physical Exam Vitals: Vital Signs Temp Pulse Resp BP Pulse Ox 10/29/24 18:15 97.2 F L 61 17 139/84 98 Intake and Output 10/29/24 10/29/24 10/29/24 06:59 14:59 22:59 Other: Weight 81.647 kg Results CBC & Chem 7: 10/29/24 18:06 10/29/24 18:06 Labs: Abnormal Lab Results - Last 24 Hours (Table) 10/29/24 10/29/24 Range/Units 18:06 18:06 RDW 15.6 H (11.5-15.5) % Carbon Dioxide 18 L (22-30) mmol/L BUN 22 H (9-20) mg/dL
[2024-10-30] MEDS: NITROGLYCERIN OINT 1 INCH/GM PACKET TOPICAL SCH (02:23)
[2024-10-30 08:37] LABS: HCT 47.6 % (39.6-50.0); HGB 15.6 g/dL (13.0-17.0); MCH 29.3 pg (27.0-32.0); MCHC 32.8 g/dL (32.0-37.0); MCV 89.3 FL (80.0-97.0); Mean Platelet Volume 11.4 FL (9.5-12.2); NRBC Per 100 WBC 0 X 10*3/uL (0.00-0.01); Platelet Count 198 X 10*3/uL (140-440); RBC 5.33 X 10*6/uL (4.40-5.60); RDW 15.9 % (11.5-14.5); WBC 8.46 X 10*3/uL (4.50-10.00)
[2024-10-30 08:56] LABS: BUN/Creat Ratio 13.07 Ratio (12.00-20.00); Blood Urea Nitrogen 18.3 mg/dL (9.0-27.0); Calcium 9.1 mg/dL (8.7-10.3); Carbon Dioxide 24.2 mmol/L (21.6-31.8); Chloride 106 mmol/L (96-109); Glucose 90 mg/dL (70-110); Potassium 4.6 mmol/L (3.5-5.5); Sodium 139 mmol/L (135-145)
[2024-10-30] MEDS ORDERED: ASPIRIN 325 MG TAB PO SCH (09:00)
[2024-10-30] MEDS: ENOXAPARIN 40 MG/0.4 ML SYRINGE SQ SCH (09:51)
[2024-10-30] MEDS: ASPIRIN 81 MG PO SCH (09:52)
--- NOTE | 2024-10-30 11:37 | P.CRDCN ---
History of Present Illness History of present illness: HISTORY OF PRESENT ILLNESS: This is a 69-year-old male with a past medical history significant for coronary artery disease with previous PCI, right carotid artery stenosis, hypertension, hyperlipidemia, and asymptomatic sinus bradycardia. Patient follows in the office with Dr. Siegel. We have been asked to see the patient in consultation for chest pain. Patient examined at the bedside. Patient states he was walking outside when he began to have pressure in the middle of his chest. He states that the pain lasted for couple hours and then went away. He denied any nausea or vomiting. Denied any associated shortness of breath. Denied any dizziness or lightheadedness. Patient states he is usually very active and does a lot of walking and does not have symptoms. He states this is the first time that he had chest discomfort. Patient states he did not take any sublingual nitro at home. DIAGNOSTICS: - EKG reveals sinus bradycardia with no signs of acute ischemia. - Chest xray negative for acute process - Laboratory data: WBC 8.46. Hemoglobin 15.6. Platelet count 198. Sodium 139. Potassium 4.6. BUN 18.3. Creatinine 1.4. Troponin negative x 3. - Current home cardiac medications include aspirin 81 mg daily, atorvastatin 40 mg at night, lisinopril 5 mg daily. - Most recent echocardiogram obtained in December 2020 revealing ejection fraction 55 to 60% - Cardiac catheterization history: December 2020 revealing successful PCI of proximal to mid LAD and kissing balloon angioplasty diagonal 1, low normal left- sided filling pressures REVIEW OF SYSTEMS: At the time of my exam: CONSTITUTIONAL: Denies fever or chills. HEENT: Denies blurred vision, vision changes, or eye pain. Denies hemoptysis CARDIOVASCULAR: Denies chest pain. Denies orthopnea. Denies PND. Denies palpitations RESPIRATORY: Denies shortness of breath. GASTROINTESTINAL: Denies abdominal pain. Denies nausea or vomiting. HEMATOLOGIC: Denies bleeding disorders. GENITOURINARY: Denies any blood in urine. SKIN: Denies pruitis. Denies rash. PHYSICAL EXAM: VITAL SIGNS: Reviewed. GENERAL: Well-developed in no acute distress. HEENT: Head is normocephalic. Pupils are equal, round. Sclerae anicteric. Mucous membranes of the mouth are moist. Neck supple. No JVD or thyromegaly LUNGS: Respirations even and unlabored. Lungs essentially clear to auscultation bilaterally. HEART: Regular rate and rhythm. S1 and S2 heard. ABDOMEN: Soft. Nondistended. Nontender. EXTREMITIES: Normal range of motion. No clubbing or cyanosis. Peripheral pulses intact. No lower extremity edema NEUROLOGIC: Awake and alert. Oriented x 3. ASSESSMENT: Chest pain, troponin negative x 3 Coronary artery disease with previous PCI of the RCA and mid LAD, 2020 Right carotid artery stenosis, 50 to 79% Hypertension Hyperlipidemia Known asymptomatic sinus bradycardia Blindness in one eye History of ocular migraines PLAN: An acute coronary event has been ruled out Obtain 2D echo to assess cardiac structure and function Continue home cardiac medications as listed above including aspirin, atorvastatin, and lisinopril Dr. Fournier discussed possible addition of Ranexa with patient at discharge. However patient states he does not like to take multiple medications and is not interested in starting this at this time. Recommend sublingual nitro at discharge Patient to undergo stress echocardiogram today If negative, patient may be discharged home today from a cardiac standpoint and follow-up in the office with Dr. Siegel Nurse practitioner note has been reviewed by physician. Signing provider agrees with the documented findings, assessment, and plan of care documented by [employer]ER as a scribe. Past Medical History Past Medical History: Coronary Artery Disease (CAD), Eye Disorder, Hyperlipidemia, Hypertension Additional Past Medical History / Comment(s): L eye legally blind, L eye glaucoma, ocular migraines History of Any Multi-Drug Resistant Organisms: None Reported Past Surgical History: Appendectomy, Heart Catheterization With Stent, Joint Replacement, Orthopedic Surgery Additional Past Surgical History / Comment(s): L eye injury with surgery, L eye bleb inserted for glaucoma and later removed, L eye cataract removal, total R knee replacement, L wrist carpal tunnel release, colonoscopy Past Anesthesia/Blood Transfusion Reactions: No Reported Reaction Date of Last Stent Placement:: 12/05/20 Past Psychological History: No Psychological Hx Reported Smoking Status: Never smoker Past Alcohol Use History: Occasional Past Drug Use History: Marijuana - Past Family History Brother(s) Family Medical History: Cancer Additional Family Medical History / Comment(s): brain Father Family Medical History: Myocardial Infarction ([place]) Additional Family Medical History / Comment(s): Father had several MIs with first Mi at age 50 yrs. He also had a pacemaker. Mother Family Medical History: Cancer, Myocardial Infarction ([place]) Additional Family Medical History / Comment(s): Mother had a [place] at the age of 80yrs. She of ovarian cancer at the age of 85 yrs. Medications and Allergies Home Medications Medication Instructions Recorded Confirmed Type Aspirin 81 mg PO DAILY 01/13/14 10/29/24 History Atorvastatin [Lipitor] 40 mg PO HS 11/30/21 10/29/24 History lisinopriL [Zestril] 5 mg PO DAILY 11/30/21 10/29/24 History Ofloxacin 0.3% Ophth Soln [Ocuflox 1 drop LEFT EYE TID 10/29/24 10/29/24 History Ophth Soln] Allergies Allergy/AdvReac Type Severity Reaction Status Date / Time No Known Allergies Allergy Verified 10/29/24 19:26 Physical Exam Vitals: Vital Signs Temp Pulse Pulse Resp BP BP Pulse Ox 10/30/24 07:00 98.4 F 65 16 92/59 98 10/30/24 02:29 98.2 F 62 15 103/65 96 10/29/24 22:02 97.8 F 59 L 15 117/74 98 10/29/24 21:26 98.0 F 60 18 133/89 98 10/29/24 20:44 61 14 147/87 99 10/29/24 18:15 97.2 F L 61 17 139/84 98 Intake and Output 10/29/24 10/30/24 10/30/24 22:59 06:59 14:59 Other: Voiding Method Toilet # Voids 1 Weight 81.647 kg Results 10/30/24 03:37 10/30/24 03:37 Cardiac Enzymes 10/29/24 10/29/24 10/29/24 Range/Units 18:06 18:06 20:48 AST 34 (17-59) U/L Troponin I <0.012 <0.012 (0.000-0.034) ng/mL 10/29/24 Range/Units 23:05 AST (17-59) U/L Troponin I <0.012 (0.000-0.034) ng/mL Coagulation 10/29/24 Range/Units 18:06 PT 10.6 (10.0-12.5) sec APTT 23.1 (22.0-30.0) sec CBC 10/29/24 Range/Units 18:06 WBC 9.1 (3.8-10.6) k/uL RBC 5.65 (4.30-5.90) m/uL Hgb 16.3 (13.0-17.5) gm/dL Hct 50.5 (39.0-53.0) % Plt Count 197 (150-450) k/uL Comprehensive Metabolic Panel 10/29/24 Range/Units 18:06 Sodium 137 (137-145) mmol/L Potassium 4.1 (3.5-5.1) mmol/L Chloride 105 (98-107) mmol/L Carbon Dioxide 18 L (22-30) mmol/L BUN 22 H (9-20) mg/dL Creatinine 1.14 (0.66-1.25) mg/dL Glucose 89 (74-99) mg/dL Calcium 9.1 (8.4-10.2) mg/dL AST 34 (17-59) U/L ALT 35 (4-49) U/L Alkaline Phosphatase 109 (38-126) U/L Total Protein 6.8 (6.3-8.2) g/dL Albumin 4.1 (3.5-5.0) g/dL Current Medications Generic Name Dose Route Start Last Admin Trade Name Freq PRN Reason Stop Dose Admin Aspirin 81 mg 10/30/24 09:00 Aspirin 81 Mg PO DAILY [facility] Atorvastatin Calcium 40 mg 10/29/24 21:00 10/29/24 20:53 Atorvastatin 40 Mg Tab PO 40 mg HS KALEN Administration Enoxaparin Sodium 40 mg 10/30/24 09:00 Enoxaparin 40 Mg/0.4 Ml Syringe SQ DAILY [facility] Lisinopril 5 mg 10/30/24 09:00 Lisinopril 5 Mg Tab PO DAILY [facility] Nitroglycerin 0.4 mg 10/29/24 19:22 Nitroglycerin Sl Tabs 0.4 Mg Tab SUBLINGUAL Q5M PRN Chest Pain Nitroglycerin 1 inch 10/30/24 02:00 10/30/24 02:23 Nitroglycerin Oint 1 Inch/Gm Packet TOPICAL 1 inch Q6H [facility] Administration Ofloxacin 1 drops 10/29/24 22:00 10/29/24 21:22 Ofloxacin 0.3% Ophth Drops 5 Ml Bottle LEFT EYE 1 drops TID [facility] Administration Intake and Output 0210/30/24 10/30/24 22:59 06:59 14:59 Other: Voiding Method Toilet # Voids 1 Weight 81.647 kg 10/29/24 18:06 10/29/24 18:06
[2024-10-30] MEDS: lisinopriL 5 MG TAB PO SCH (13:26)
--- NOTE | 2024-10-30 13:36 | CA ---
Stress Echo Report Ignacio Enrique Age: 69 Gender: M : 1955 Exam Date: 10/30/2024 12:04 Exam Location: [facility] Ht (in): 70 Wt (lb): 180 Ordering Physician: Minna Hart Referring Physician: [id number] Molder [employer]: [place]ian [place] RDCS Technologist Procedure CPT: Indication: CP ICD-9 Codes: Rhythm: Patient History: CHEST PAIN, PALPITATIONS, HTN, HYPERCHOLESTEROLEMIA, FAMILY HX OF HEART DISEASE, PRIOR CATH WITH STENTING X 3 Cardiac Medications: SEE CHART,,,,, Medications in past 24 hours: Contrast: Stress Results Protocol: Jostin Total dose(mL): Exercise Duration (min:sec): 5:[address] Depression (mm): Angina Score: Gonzalez Score: METS: 7.6 Resting HR: 96 Resting BP: 107 / 58 Peak HR: 136 Peak BP: 159 / 94 Max Predicted HR: 152 89 % Max Predicted HR Target HR: 129 Double Product: [id number] Stress Summary: IMAGES WERE LOST FOLLOWING FIRST EXERCISE PORTION. FIRST EXERCISE DURATION WAS 9:32. EXERCISE TEST WAS REPEATED AND PATIENT TOTAL EXERCISE TIME WAS 5:45. BP Response: Normal blood pressure response Reason for Termination: Target HR Cardiac Symptoms: NO SYMPTOMS ECG Analysis Resting ECG: Normal sinus rhythm Stress ECG: No significant ST-T wave changes that are diagnostic for ischemia by segment analysis with peak stress. Arrhythmia: There were no sustained arrhythmias or ectopic beats noticed during the stress test Echo Analysis Resting Echo: No obvious resting regional wall motion normality. Normal global and segmental systolic function at rest. Peak Echo Analysis: Stress images are delayed and are not obtained at or above 85% of max heart rate. Therefore the stress test is nondiagnostic. At around 80% of max heart rate, patient does not have any stress- induced regional wall motion normality. There is normal augmentation of global and segmental systolic function. MEASUREMENTS (Male/Female) Normal Values CONCLUSIONS Overall nondiagnostic treadmill echo stress test Nonischemic ECG response to treadmill exercised Nondiagnostic echo response as images delayed and not obtained above 85% maximal heart rate Normal hemodynamic and clinical response to treadmill exercise Fair exercise tolerance for age achieving 7.[address] William Fournier (Electronically Signed) Final Date: 30 October 2024 13:35
[2024-10-30 13:40] VITALS: BP 107/72; PULSE 72; RESP 20; TEMP 99.2
--- NOTE | 2024-10-30 14:10 | P.DS ---
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 Patient symptoms began today at 4 this afternoon. Patient describes pain as tightness or heartburn like in sensation and was was located centrally, radiating to axilla bilaterally. He was outside walking and "kicking around some snow" when pain first occurred. Pain 2 out of 10 in severity. Initial pain lasted for about 2 hours and is now intermittent. He also describes associated dyspnea, lightheadedness, and nausea. Labs significant for WBC 9.1, sodium 137, bicarb 18, BUN 22, creatinine 1.14, troponin <0.012 EKG independently interpreted showed sinus bradycardia heart rate of 57, no ST segment elevation or depression seen, no T-wave inversions seen. Chest x-ray done independently interpreted showed no acute cardiopulmonary process. Patient was admitted for cardiology evaluation. ACS ruled out, patient recommended to continue home medications with aspirin,, statin, lisinopril, sublingual nitro at discharge. Stress echo was negative, patient was cleared by cardiology for discharge Patient seen and examined at bedside. Vital signs reviewed and stable. General: [nontoxic], [no distress], [appears at stated age] Derm: [warm], [dry] Head: [atraumatic], [normocephalic], [symmetric] Eyes: [EOMI], [no lid lag], [anicteric sclera] Mouth: [no lip lesion], [mucus membranes moist] Cardiovascular: [S1S2 reg], [no murmur] Lungs: [CTA bilateral], [no rhonchi, no rales] , [no accessory muscle use] Abdominal: [soft], [ nontender to palpation], [no guarding], [no appreciable organomegaly] Ext: [no gross muscle atrophy], [no edema], [no contractures] Neuro: [ CN II-XI grossly intact], [no focal neuro deficits] Psych: [Alert], [oriented], [appropriate affect] A total of 40 minutes of time were spent preparing this complex discharge summary. Patient was discharged on 10/30/2024. Plan - Discharge Summary New Discharge Prescriptions: New Nitroglycerin Sl Tabs [Nitrostat] 0.4 mg SUBLINGUAL Q5M PRN #30 tab PRN Reason: Chest Pain Continue Aspirin 81 mg PO DAILY lisinopriL [Zestril] 5 mg PO DAILY Ofloxacin 0.3% Ophth Soln [Ocuflox Ophth Soln] 1 drop LEFT EYE TID Atorvastatin [Lipitor] 40 mg PO HS Discharge Medication List Aspirin 81 mg PO DAILY 01/13/14 [History] Atorvastatin [Lipitor] 40 mg PO HS 11/30/21 [History] lisinopriL [Zestril] 5 mg PO DAILY 11/30/21 [History] Ofloxacin 0.3% Ophth Soln [Ocuflox Ophth Soln] 1 drop LEFT EYE TID 10/29/24 [History] Nitroglycerin Sl Tabs [Nitrostat] 0.4 mg SUBLINGUAL Q5M PRN #30 tab 10/30/24 [Rx] Follow up Appointment(s)/Referral(s): Ignacio Willard DO [Doctor of Osteopathic Medicine] - 1-2 days Patient Instructions/Handouts: Chest Pain (DC) Activity/Diet/Wound Care/Special Instructions: Please, follow up with your PCP and candle molder Discharge Disposition: HOME SELF-CARE
--- NOTE | 2024-10-30 17:21 | CA ---
Transthoracic Echo Report Name: Ignacio Enrique Age: 69 Gender: M : 1955 Exam Date: 10/30/2024 12:19 Exam Location: [facility] Ht (in): 70 Wt (lb): 180 Ordering Physician: Minna Hart Attending/Referring Phys: [id number], Tanner Shoe Cleaner Lilian [place] RDCS Procedure CPT: Indications: LV function, CP Cardiac Hx: Technical Quality: Good Contrast 1: Total Dose (mL): Contrast 2: Total Dose (mL): MEASUREMENTS (Male / Female) Normal Values 2D ECHO LV Diastolic Diameter PLAX 4.6 cm 4.2 - 5.9 / 3.9 - 5.3 cm LV Systolic Diameter PLAX 3.0 cm IVS Diastolic Thickness 1.1 cm 0.6 - 1.0 / 0.6 - 0.9 cm LVPW Diastolic Thickness 1.0 cm 0.6 - 1.0 / 0.6 - 0.9 cm LV Relative Wall Thickness 0.4 RV Internal Dim ED PLAX 2.5 cm LA Systolic Diameter LX 3.5 cm 3.0 - 4.0 / 2.7 - 3.8 cm LV Diastolic Volume MOD BP 73.9 cm??? 67 - 155 / 56 - 104 cm??? LV Systolic Volume MOD BP 27.2 cm??? 22 - 58 / 19 - 49 cm??? LV Ejection Fraction MOD BP 63.2 % >= 55 % LV Cardiac Index MOD BP 1853.1 cm???/min???m??? LV Diastolic Volume MOD 4C 87.5 cm??? LV Systolic Volume MOD 4C 33.2 cm??? LV Ejection Fraction MOD 4C 62.0 % LV Cardiac Index MOD 4C 2151.8 cm???/min???m??? LV Diastolic Length 4C 7.9 cm LV Systolic Length 4C 6.5 cm LV Diastolic Volume MOD 2C 46.6 cm??? LV Systolic Volume MOD 2C 23.1 cm??? LV Ejection Fraction MOD 2C 50.5 % LV Cardiac Index MOD 2C 931.0 cm???/min???m??? LV Diastolic Length 2C 5.8 cm LV Systolic Length 2C 6.1 cm M-MODE Aortic Root Diameter MM 3.3 cm DOPPLER AV Peak Velocity 118.0 cm/s AV Peak Gradient 5.6 mmHg Mitral E Point Velocity 58.2 cm/s Mitral A Point Velocity 75.7 cm/s Mitral E to A Ratio 0.8 MV Deceleration Time 207.2 ms MV E' Velocity 7.3 cm/s Mitral E to MV E' Ratio 8.0 TR Peak Velocity 225.0 cm/s TR Peak Gradient 20.3 mmHg Right Ventricular Systolic Press 30.3 mmHg FINDINGS Left Ventricle Left ventricular ejection fraction is estimated at 55-60 %. Left ventricular cavity size normal. Left ventricular wall thickness normal. Normal left ventricular wall motion.no obvious regional wall motion abnormalities. Right Ventricle Normal right ventricular size and function. Right ventricular systolic pressure within normal limits. Right Atrium Normal right atrial size. No right atrial thrombus or mass seen. Left Atrium Normal left atrial size. Left atrial size at the upper limits of normal. Mitral Valve Structurally normal mitral valve. No mitral stenosis, regurgitation or prolapse. Aortic Valve Trileaflet aortic valve. No aortic valve stenosis or regurgitation. Tricuspid Valve Structurally normal tricuspid valve. Mild tricuspid regurgitation. Pulmonic Valve Structurally normal pulmonic valve. No pulmonic regurgitation. Pericardium No pericardial effusion. Aorta Normal size aortic root and proximal ascending aorta. CONCLUSIONS Left ventricular ejection fraction is estimated at 55-60 %. No obvious regional wall motion abnormalities. Normal right ventricular size and function. No significant valve dysfunction No pericardial effusion. Previewed by: Dr William Fournier (Electronically Signed) Final Date: 30 October 2024 17:20
== END 2024-10-30 14:50 | disposition home or self-care (01) ==
LOC: EC 17:58 → 6NMEDSUR 19:23
PROVIDERS: ADMIT Internal Medicine; ATTEND Internal Medicine
DX: R07.9 Chest pain, unspecified (principal); I25.10 Atherosclerotic heart disease of native coronary artery without angina pectoris; I65.21 Occlusion and stenosis of right carotid artery; I10 Essential (primary) hypertension; E78.5 Hyperlipidemia, unspecified; R00.1 Bradycardia, unspecified; H54.40 Blindness, one eye, unspecified eye; Z79.02 Long term (current) use of antithrombotics/antiplatelets; Z79.82 Long term (current) use of aspirin; Z79.899 Other long term (current) drug therapy; Z82.49 Family history of ischemic heart disease and other diseases of the circulatory system; Z95.5 Presence of coronary angioplasty implant and graft
CPT/HCPCS: 99285; 36415; 93005; 93306; 93351; 80053; 80048; 83735; 84484; 85025; 85027; 85610; 85730; 83036; 71046; G0378 ×2